=== PATIENT | male | born 1950 | race Caucasian/White ===

== ENCOUNTER 2017-02-04 00:50 | Emergency (ER) | payer MEDICARE, OTHER ==
--- NOTE | 2017-02-04 01:06 | EDM.PDOC ---
ED HPI GENERAL MEDICAL PROBLEM - General Chief Complaint: General Stated Complaint: Intoxication Time Seen by Provider: 02/04/17 00:50 Source of Information: Reports: EMS, EMS Notes Reviewed, RN, RN Notes Reviewed History Limitations: Reports: Intoxication - History of Present Illness INITIAL COMMENTS - FREE TEXT/NARRATIVE: Patient is brought to the ED at [facility] after he was found laying in a alley behind a bar. Patient was found by local police department. The police called EMS for treatment. Patient apparently was intoxicated and had significant problems with standing. Patient recently had left hip surgery. Patient is incoherent and smells of ETOH. He denies any pain. No chest pain. No SOB. Patient is a poor historian due to current ETOH intoxication. Onset: Today Onset Date: 02/04/17 - Related Data Allergies Allergy/AdvReac Type Severity Reaction Status Date / Time No Known Allergies Allergy Verified 02/04/17 01:10 Home Meds: Home Meds Aspirin [Halfprin] 81 mg PO DAILY 08/25/14 [History] Cholecalciferol (Vitamin D3) [Vitamin D] 1,000 unit PO DAILY 08/25/14 [History] Multivitamin [Multi Vitamin Daily] 1 each PO DAILY 08/25/14 [History] atorvaSTATin [Lipitor] 10 mg PO BEDTIME 08/25/14 [History] Albuterol/Ipratropium [Combivent Respimat] 1 puff INH 10/15/14 [History] Moxifloxacin [Vigamox 0.5% Ophth Soln] 1 drop EYELF TID 10/15/14 [History] Nepafenac [[place] 0.1% Ophth Soln] 1 drop EYELF TID 10/15/14 [History] prednisoLONE Acetate [Pred Forte 1% Ophth Susp] 1 drop EYELF TID 10/15/14 [ History] Past Medical History - Past Surgical History Musculoskeletal Surgical History: Reports: Hip Replacement Social & Family History - Family History Family Medical History: Noncontributory - Tobacco Use Smoking Status *Q: Former Smoker Years of Tobacco use: 30 Used Tobacco, but Quit: Yes - Tobacco Core Measures Tobacco Use/Smoking Within Last 30 Days: No Smokeless Tobacco Use in Last 30 Days: No - Alcohol Use Alcohol Use History: Yes Days Per Week of Alcohol Use: 5 Number of Drinks Per Day: 2 Total Drinks Per Week: 10 Alcohol Use in Last Twelve Months: Yes - Recreational Drug Use Recreational Drug Use: No Drug Use in Last 12 Months: No - Living Situation & Occupation Living situation: Reports: Alone Occupation: Retired ED ROS GENERAL - Review of Systems Review Of Systems: Unable To Obtain (ETOH intoxication) - Physical Exam Exam: See Below Exam Limited By: Intoxication General Appearance: Alert, No Apparent Distress Eye Exam: Bilateral Eye: Normal Inspection, PERRL Ears: Normal External Exam, Normal Canal, Normal TMs Nose: Normal Inspection, Normal Mucosa, No Blood Throat/Mouth: Normal Inspection, Normal Oropharynx, No Airway Compromise Head Exam: Atraumatic, Normocephalic Neck: Supple Respiratory/Chest: No Respiratory Distress, Lungs Clear, Normal Breath Sounds Cardiovascular: Normal Peripheral Pulses, Regular Rate, Rhythm GI/Abdominal: Normal Bowel Sounds, Soft, Non-Tender Neuro Exam (Abbreviated): Alert, Confused, Disoriented Back Exam: Normal Inspection Skin Exam: Warm, Dry, Normal Color, No Rash, Wound/Incision (abrasion to left elbow) Course - Vital Signs Last Recorded V/S: Last Vital Signs Temp 36.1 C 02/04/17 00:52 Pulse 76 02/04/17 00:52 Resp 16 02/04/17 00:52 BP 145/85 H 02/04/17 00:52 Pulse Ox 98 02/04/17 00:52 - Orders/Labs/Meds Orders: Active Orders 24 hr Category Date Time Status Hip Min 2V or 3V w Pelvis Lt [CR] Stat Exams 02/04/17 01:35 Taken Lactated Ringers [Ringers, Lactated] 1,000 ml Med 02/04/17 02:00 Active IV ASDIRECTED Sodium Chloride 0.9% [Saline Flush] Med 02/04/17 01:52 Active 10 ml FLUSH ASDIRECTED PRN Peripheral IV Insertion Adult [OM.PC] Routine Oth 02/04/17 01:52 Ordered Medication Orders Lactated Ringer's (Ringers, Lactated) 1,000 mls @ 999 mls/hr IV ASDIRECTED AMENA Last Admin: 02/04/17 01:10 Dose: 999 mls/hr Sodium Chloride (Saline Flush) 10 ml FLUSH ASDIRECTED PRN PRN Reason: Keep Vein Open Labs: Laboratory Tests 05/15/17 05/15/17 Range/Units 01:05 01:05 WBC 6.3 (4.0-10.0) x10^3/uL RBC 3.96 L (4.5-6.0) x10^6/uL Hgb 12.1 L (14.0-18.0) g/dL Hct 35.8 L (40.0-52.0) % MCV 90.4 (78.0-93.0) fL MCH 30.6 (26.0-32.0) pg MCHC 33.8 (32.0-36.0) g/dL RDW Coeff of [place] 13.1 (10.0-15.0) % Plt Count 189 (130-400) x10^3/uL Neut % (Auto) 55.6 (50.0-80.0) % Lymph % (Auto) 34.3 (25.0-50.0) % [place] % (Auto) 7.7 (2.0-11.0) % Eos % (Auto) 2.1 (0.0-4.0) % Baso % (Auto) 0.3 (0.2-1.2) % Sodium 131 L (136-145) mmol/L Potassium 3.8 (3.5-5.1) mmol/L Chloride 96 L (98-107) mmol/L Carbon Dioxide 24 (21-32) mmol/L BUN 5 L (7-18) mg/dL Creatinine 0.7 (0.70-1.30) mg/dL Est Cr Clr Drug Dosing 94.43 mL/min Estimated GFR (MDRD) > 60 Glucose 114 H (74-106) mg/dL Calcium 7.8 L (8.5-10.1) mg/dL Ethyl Alcohol 349 H* (0-3) mg/dL Meds: Medications Generic Name Dose Route Start Last Admin Trade Name Freq PRN Reason Stop Dose Admin Lactated Ringer's 1,000 mls @ 999 mls/hr 02/04/17 02:00 02/04/17 01:10 Ringers, Lactated IV 999 mls/hr ASDIRECTED AMENA Administration Sodium Chloride 10 ml 02/04/17 01:52 Saline Flush FLUSH ASDIRECTED PRN Keep Vein Open - Radiology Interpretation Free Text/Narrative:: 02/04/2017 02:16 Hip/Pelvis 2 or 3 views: Oblique fracture proximal left femoral diaphysis crosses the intramedullary component of the bipolar hip replacement Departure - Departure Time of Disposition: 02:21 Disposition: DC/Tfer to Acute Hospital 02 Clinical Impression: Acute alcohol intoxication Qualifiers: Complication of substance-induced condition: with delirium Qualified Code(s): F10.921 - Alcohol use, unspecified with intoxication delirium Femur fracture, left Qualifiers: Encounter type: initial encounter Femur location: shaft Fracture type: closed Fracture morphology: oblique Fracture alignment: displaced Qualified Code(s): S72.332A - Displaced oblique fracture of shaft of left femur, initial encounter for closed fracture S/P hip replacement Qualifiers: Laterality: left Qualified Code(s): Z96.642 - Presence of left artificial hip joint - Discharge Information Forms: Interfacility Transfer EMTALA ED Communication - ED Communication Date/Time Date: 02/04/17 Time Called: 02:10 - Discussed Case With (1) Discussed Case With (1): Admitting Provider (Dr. Escobedo, Orthopedics; Dr. Maldonado, Hospitalist is admitting provider) - Conversation Summary Admitting Provider Agreed to Patient's Admission: Yes Patient Aware of Amendments fo Care Plan: Yes Summary Comment: Patient will be transferred to [facility] medical floor. Accepting provider is Dr. Escobedo/Dr. Maldonado. Report given to Dr. Escobedo. - Problem List Review Problem List Initiated/Reviewed/Updated: Yes - My Orders Last 24 Hours: My Active Orders 02/04/17 01:35 Hip Min 2V or 3V w Pelvis Lt [CR] Stat 02/04/17 01:52 Sodium Chloride 0.9% [Saline Flush] 10 ml FLUSH ASDIRECTED PRN Peripheral IV Insertion Adult [OM.PC] Routine 02/04/17 02:00 Lactated Ringers [Ringers, Lactated] 1,000 ml IV ASDIRECTED - Assessment/Plan Last 24 Hours: My Active Orders 02/04/17 01:35 Hip Min 2V or 3V w Pelvis Lt [CR] Stat 02/04/17 01:52 Sodium Chloride 0.9% [Saline Flush] 10 ml FLUSH ASDIRECTED PRN Peripheral IV Insertion Adult [OM.PC] Routine 02/04/17 02:00 Lactated Ringers [Ringers, Lactated] 1,000 ml IV ASDIRECTED
[2017-02-04 01:14] VITALS: BP 145/85
[2017-02-04 01:43] LABS: CHLORIDE,CL 96 mmol/L (98-107); SODIUM,NA 131 mmol/L (136-145)
[2017-02-04] MEDS ORDERED: Sodium Chloride 0.9% 10 ML Syringe FLUSH PRN (01:52)
[2017-02-04] MEDS ORDERED: Lactated Ringers 1,000 ML IV SCH (02:00)
== END 2017-02-04 02:47 | disposition short-term general hospital (02) ==
LOC: VM.ED 00:50
DX: S72.332A Displaced oblique fracture of shaft of left femur, initial encounter for closed fracture (principal); F10.921 Alcohol use, unspecified with intoxication delirium; Z96.642 Presence of left artificial hip joint; Z79.82 Long term (current) use of aspirin; Z79.899 Other long term (current) drug therapy; Z87.891 Personal history of nicotine dependence; X58.XXXA Exposure to other specified factors, initial encounter
CPT/HCPCS: 36415; 73502; 80048; 85025; 96360; 99285; G0480; J7120

== ENCOUNTER 2017-02-08 12:44 | Inpatient (IN) | payer MEDICARE, OTHER ==
[2017-02-08] MEDS ORDERED: oxyCODONE 5 MG Tab PO PRN (16:36)
[2017-02-08] MEDS ORDERED: Albuterol/Ipratropium 4 GM Inhalation Spray INH PRN (16:36)
[2017-02-08] MEDS ORDERED: Albuterol/Ipratropium 3.0-0.5 MG/3 ML Neb Soln NEB PRN (17:07)
[2017-02-08] MEDS: Acetaminophen 325 MG Tab PO PRN (19:35)
[2017-02-08] MEDS: atorvaSTATin 10 MG Tab PO SCH (19:38)
[2017-02-08] MEDS: Aspirin 325 MG Tab.EC PO SCH (19:38)
[2017-02-09] MEDS: Acetaminophen 325 MG Tab PO PRN (06:10)
[2017-02-09] MEDS: Omeprazole 20 MG Cap.CR PO SCH (06:10)
[2017-02-09] MEDS: Cholecalciferol (Vitamin D3) 1,000 Unit Tab PO SCH (07:50)
[2017-02-09] MEDS: Multivitamins with Iron/Calcium/Folic Acid/Minerals Tab PO SCH (07:50)
[2017-02-09] MEDS: Aspirin 325 MG Tab.EC PO SCH ×2 (07:50→19:43)
[2017-02-09] MEDS: ALBUTEROL INH PRN (07:51)
[2017-02-09] MEDS: IPRATROPIUM INH PRN (07:51)
[2017-02-09] MEDS: atorvaSTATin 10 MG Tab PO SCH (19:43)
[2017-02-10] MEDS: Omeprazole 20 MG Cap.CR PO SCH (06:27)
[2017-02-10] MEDS: Cholecalciferol (Vitamin D3) 1,000 Unit Tab PO SCH (07:35)
[2017-02-10] MEDS: Acetaminophen 325 MG Tab PO PRN (07:36)
[2017-02-10] MEDS: Multivitamins with Iron/Calcium/Folic Acid/Minerals Tab PO SCH (07:36)
[2017-02-10] MEDS: ALBUTEROL INH PRN (07:36)
[2017-02-10] MEDS: IPRATROPIUM INH PRN (07:36)
[2017-02-10] MEDS: Aspirin 325 MG Tab.EC PO SCH ×2 (07:36→19:49)
[2017-02-10] MEDS: atorvaSTATin 10 MG Tab PO SCH (19:49)
[2017-02-11] MEDS: Omeprazole 20 MG Cap.CR PO SCH (06:08)
[2017-02-11] MEDS: Acetaminophen 325 MG Tab PO PRN (06:11)
[2017-02-11] MEDS: Cholecalciferol (Vitamin D3) 1,000 Unit Tab PO SCH (07:48)
[2017-02-11] MEDS: Multivitamins with Iron/Calcium/Folic Acid/Minerals Tab PO SCH (07:49)
[2017-02-11] MEDS: Aspirin 325 MG Tab.EC PO SCH ×2 (07:49→20:27)
--- NOTE | 2017-02-11 14:50 | PCM.HP ---
H&P History of Present Illness - General Date of Service: 02/09/17 Admit Problem/Dx: Admission Diagnosis/Problem Admission Diagnosis/Problem Hip pain Patient is s/p left hip ORIF completed at [facility] in [place]. Source of Information: Patient, Old Records History Limitations: Reports: No Limitations - Related Data Allergies/Adverse Reactions: Allergies Allergy/AdvReac Type Severity Reaction Status Date / Time No Known Allergies Allergy Verified 02/08/17 10:20 Home Medications: Home Meds Cholecalciferol (Vitamin D3) [Vitamin D] 2,000 unit PO DAILY 08/25/14 [History] Multivitamin [Multi Vitamin Daily] 1 tab PO DAILY 08/25/14 [History] atorvaSTATin [Lipitor] 10 mg PO BEDTIME 08/25/14 [History] Albuterol/Ipratropium [Combivent Respimat] 1 puff INH QID PRN 10/15/14 [History] Aspirin/Calcium Carbonate/Mag [Aspirin Buffered 325 mg Tab] 325 mg PO BID [History] Omeprazole 40 mg PO DAILY 02/08/17 [History] Sennosides/Docusate Sodium [Senna-Docusate Sodium] 1 tab PO DAILY 02/08/17 [ History] oxyCODONE 5 - 10 mg PO Q4H PRN 02/08/17 [History] Past Medical History Cardiovascular History: Reports: CAD, High Cholesterol, Hypertension, CT, PVD, Other (See Below) Other Cardiovascular History: aortoliac stenosis, vascular claudication Respiratory History: Reports: COPD, Other (See Below) Other Respiratory History: acute respiratory failure Musculoskeletal History: Reports: Other (See Below) Other Musculoskeletal History: right elbow fracure Psychiatric History: Reports: Addiction - Past Surgical History HEENT Surgical History: Reports: Cataract Surgery Cardiovascular Surgical History: Reports: AAA repair, Other (See Below) Other Cardiovascular Surgeries/Procedures: cardiac catheterization GI Surgical History: Reports: Hernia Repair/Other Musculoskeletal Surgical History: Reports: Hip Replacement Social & Family History - Family History Family Medical History: Noncontributory - Tobacco Use Smoking Status *Q: Former Smoker Years of Tobacco use: 35 Used Tobacco, but Quit: Yes Month Tobacco Last Used: 2003 - Alcohol Use Days Per Week of Alcohol Use: 2 Number of Drinks Per Day: 4 Total Drinks Per Week: 8 - Recreational Drug Use Recreational Drug Use: No Drug Use in Last 12 Months: No - Living Situation & Occupation Living situation: Reports: Alone Occupation: Retired H&P Review of Systems - Review of Systems: Review Of Systems: See Below General: Denies: Fever, Chills HEENT: Reports: No Symptoms Pulmonary: Denies: Shortness of Breath, Cough Cardiovascular: Denies: Chest Pain, Dyspnea on Exertion, Edema Gastrointestinal: Denies: Abdominal Pain, Constipation, Diarrhea, Nausea, Vomiting Genitourinary: Reports: No Symptoms Musculoskeletal: Reports: Joint Pain Skin: Reports: No Symptoms Psychiatric: Reports: No Symptoms Neurological: Reports: Weakness Hematologic/Lymphatic: Reports: No Symptoms Immunologic: Reports: No Symptoms Exam - Exam Exam: See Below - Vital Signs Vital Signs: Last Vital Signs Temp 36.8 C 02/11/17 05:48 Pulse 78 02/11/17 05:48 Resp 20 02/11/17 05:48 BP 142/70 H 02/11/17 05:48 Pulse Ox 96 02/10/17 16:59 Weight: 66.678 kg - Exam General: Alert, Oriented HEENT: Conjunctiva Clear, EOMI, Mucosa Moist & [place] Neck: Supple. No: Lymphadenopathy Lungs: Clear to Auscultation Cardiovascular: Regular Rate, Regular Rhythm Abdomen: Normal Bowel Sounds, Soft (Male) Exam: Deferred Rectal (Males) Exam: Deferred Extremities: Normal Inspection. No: Edema Skin: Warm, Dry, Other (Incision on left hip is clean) Neurological: Cranial Nerves Intact Neuro Extensive - Mental Status: Alert, Oriented x3 Neuro Extensive - Motor, Sensory, Reflexes: CN II-XII Intact Psychiatric: Alert, Normal Affect *Q Meaningful Use (ADM) - VTE *Q VTE Criteria *Q: - Stroke *Q Stroke Criteria *Q: - AMI *Q AMI Criteria *Q: - Problem List (1) S/P hip replacement SNOMED Code(s): 573932002, 563684509, 933712444 ICD Code: Z96.649 - PRESENCE OF UNSPECIFIED ARTIFICIAL HIP JOINT Status: Acute Current Visit: No (2) Dyslipidemia SNOMED Code(s): 728487151 ICD Code: E78.5 - HYPERLIPIDEMIA, UNSPECIFIED Status: Acute Current Visit : Yes Problem List Initiated/Reviewed/Updated: Yes Orders Last 24hrs: Active Orders 24 hr Category Date Time Status Kait Sutures Removal [RC] Click To Edit Ot 02/19/17 10:00 Active Medication Orders Acetaminophen (Tylenol) 975 mg PO Q6H PRN PRN Reason: Pain Last Admin: 02/11/17 06:11 Dose: 975 mg Admin: 02/10/17 07:36 Dose: 975 mg Admin: 02/09/17 06:10 Dose: 975 mg Admin: 02/08/17 19:35 Dose: 975 mg Aspirin (Ecotrin) 325 mg PO BID [facility] Last Admin: 02/11/17 07:49 Dose: 325 mg Admin: 02/10/17 19:49 Dose: 325 mg Admin: 02/10/17 07:36 Dose: 325 mg Admin: 02/09/17 19:43 Dose: 325 mg Admin: 02/09/17 07:50 Dose: 325 mg Admin: 02/08/17 19:38 Dose: 325 mg Atorvastatin Calcium (Lipitor) 10 mg PO BEDTIME [facility] Last Admin: 02/10/17 19:49 Dose: 10 mg Admin: 02/09/17 19:43 Dose: 10 mg Admin: 02/08/17 19:38 Dose: 10 mg Cholecalciferol (Vitamin D3) 2,000 units PO DAILY [facility] Last Admin: 02/11/17 07:48 Dose: 2,000 units Admin: 02/10/17 07:35 Dose: 2,000 units Admin: 02/09/17 07:50 Dose: 2,000 units Multivitamins/Minerals (Thera M Plus) 1 tab PO DAILY [facility] Last Admin: 02/11/17 07:49 Dose: 1 tab Admin: 02/10/17 07:36 Dose: 1 tab Admin: 02/09/17 07:50 Dose: 1 tab Omeprazole (Omeprazole) 40 mg PO DAILY@0700 [facility] Last Admin: 02/11/17 06:08 Dose: 40 mg Admin: 02/10/17 06:27 Dose: 40 mg Admin: 02/09/17 06:10 Dose: 40 mg Oxycodone HCl (Oxycodone) 5 mg PO Q4H PRN PRN Reason: Pain Albuterol/Ipratropium 4 Gm Inhalation [facility] Own Med 0 each INH QIDRT PRN PRN Reason: Wheezing Last Admin: 02/10/17 07:36 Dose: 1 each Admin: 02/09/17 07:51 Dose: 1 each Senna/Docusate Sodium (Senna Plus) 1 tab PO DAILY AMENA Last Admin: 02/11/17 07:49 Dose: 1 tab Admin: 02/10/17 07:36 Dose: 1 tab Admin: 02/09/17 07:50 Dose: 1 tab Assessment/Plan Comment:: assessment: 1. Status post left hip open reduction internal fixation 2. Dyslipidemia Plan: Patient will be admitted [facility] and enrolled in both physical as well as occupational therapy. His goal is to return home to the [facility]. He states that there is a ramp and elevator in his apartment complex and does not have to do stairs. Medications per orders. Changes will be made in his therapeutic regimen as necessary
[2017-02-11] MEDS: atorvaSTATin 10 MG Tab PO SCH (20:27)
[2017-02-12] MEDS: Omeprazole 20 MG Cap.CR PO SCH (06:17)
[2017-02-12] MEDS: Acetaminophen 325 MG Tab PO PRN (08:48)
[2017-02-12] MEDS: Multivitamins with Iron/Calcium/Folic Acid/Minerals Tab PO SCH (08:48)
[2017-02-12] MEDS: Aspirin 325 MG Tab.EC PO SCH ×2 (08:48→20:17)
[2017-02-12] MEDS: Cholecalciferol (Vitamin D3) 1,000 Unit Tab PO SCH (08:48)
[2017-02-12] MEDS: atorvaSTATin 10 MG Tab PO SCH (20:17)
[2017-02-13] MEDS: Omeprazole 20 MG Cap.CR PO SCH (06:36)
[2017-02-13] MEDS: Aspirin 325 MG Tab.EC PO SCH ×2 (07:55→20:30)
[2017-02-13] MEDS: Multivitamins with Iron/Calcium/Folic Acid/Minerals Tab PO SCH (07:55)
[2017-02-13] MEDS: Cholecalciferol (Vitamin D3) 1,000 Unit Tab PO SCH (07:55)
[2017-02-13] MEDS: Acetaminophen 325 MG Tab PO PRN ×2 (07:55→20:34)
[2017-02-13] MEDS: atorvaSTATin 10 MG Tab PO SCH (20:30)
[2017-02-14] MEDS: Omeprazole 20 MG Cap.CR PO SCH (06:22)
[2017-02-14] MEDS: Aspirin 325 MG Tab.EC PO SCH ×2 (07:40→19:42)
[2017-02-14] MEDS: Acetaminophen 325 MG Tab PO PRN ×2 (07:40→19:42)
[2017-02-14] MEDS: Multivitamins with Iron/Calcium/Folic Acid/Minerals Tab PO SCH (07:40)
[2017-02-14] MEDS: Cholecalciferol (Vitamin D3) 1,000 Unit Tab PO SCH (07:40)
[2017-02-14] MEDS: atorvaSTATin 10 MG Tab PO SCH (19:43)
[2017-02-15] MEDS: Omeprazole 20 MG Cap.CR PO SCH (06:22)
[2017-02-15 06:25] VITALS: BP 126/75
[2017-02-15] MEDS: Aspirin 325 MG Tab.EC PO SCH (07:32)
[2017-02-15] MEDS: Multivitamins with Iron/Calcium/Folic Acid/Minerals Tab PO SCH (07:32)
[2017-02-15] MEDS: Cholecalciferol (Vitamin D3) 1,000 Unit Tab PO SCH (07:32)
[2017-02-15] MEDS: Acetaminophen 325 MG Tab PO PRN (08:00)
--- NOTE | 2017-03-12 11:05 | PCM.DCSUM1 ---
Discharge Summary - Hospital Course Free Text/Narrative:: 66 year old male admitted to swing bed for continued therapy following a left hip fracture. Fracture repaired at [facility]. - Discharge Data Discharge Date: 02/15/17 Discharge Disposition: Home, Self-Care 01 Condition: Good - Discharge Diagnosis/Problem(s) (1) S/P hip replacement SNOMED Code(s): 933329873, [id number], [id number] ICD Code: Z96.649 - PRESENCE OF UNSPECIFIED ARTIFICIAL HIP JOINT Status: Acute (2) Dyslipidemia SNOMED Code(s): 111229135 ICD Code: E78.5 - HYPERLIPIDEMIA, UNSPECIFIED Status: Acute - Patient Summary/Data Consults: Consultations 02/08/17 14:49 OT Evaluation and Treatment [CONS] Routine PT Evaluation and Treatment [CONS] Routine Hospital Course: Patient was admitted to swing bed and enrolled in therapies. His swing bed course was unremarkable. f He participated in therapy and progressed to the point he felt safe to return to home. pain was well controlled throughout his stay. Vitals were normal. - Patient Instructions Diet: Heart Healthy Diet Showering/Bathing: January Show - Discharge Plan Home Medications: Home Meds Cholecalciferol (Vitamin D3) [Vitamin D3] 2,000 unit PO DAILY 08/25/14 [History] Multivitamin [Multi-Vitamin Daily] 1 tab PO DAILY 08/25/14 [History] atorvaSTATin [Lipitor] 10 mg PO BEDTIME 08/25/14 [History] Aspirin/Calcium Carbonate/Mag [Aspirin Buffered 325 mg Tab] 325 mg PO BID [History] Omeprazole 40 mg PO DAILY 02/08/17 [History] Sennosides/Docusate Sodium [Senna-Docusate Sodium] 1 tab PO DAILY 02/08/17 [ History] Acetaminophen [Tylenol] 975 mg PO Q6H PRN #0 tablet 02/15/17 [Rx] - Discharge Summary/Plan Comment DC Time >30 min.: No Discharge Summary/Plan Comment: Patient will be discharged home to the care of himself. He refuses home health/ home physical therapy -indicating he does not intend to be home bound. He will follow up in clinic for staple removal. Discharge medications per reconciliation - General Info Admission Dx/Problem (Free Text: Admission Diagnosis/Problem Admission Diagnosis/Problem Hip pain Patient is s/p left hip ORIF completed at [facility] in [place]. Functional Status: Reports: pain controlled - Review of Systems General: Denies: Fever HEENT: Reports: no symptoms Pulmonary: Denies: shortness of breath, cough Cardiovascular: Denies: Chest Pain Gastrointestinal: Denies: Abdominal pain, Constipation Genitourinary: Denies: dysuria, frequency Musculoskeletal: Denies: joint pain Neurological: Reports: No Symptoms - Patient Data Vitals - Most Recent: Last Vital Signs Temp 37.2 C 02/15/17 06:00 Pulse 93 02/15/17 06:00 Resp 20 02/15/17 06:00 BP 126/75 02/15/17 06:00 Pulse Ox 97 02/15/17 06:00 Weight - Most Recent: 66.678 kg Med Orders - Current: Current Medications Discontinued Medications Acetaminophen (Tylenol) 975 mg PO Q6H PRN PRN Reason: Pain Last Admin: 02/15/17 08:00 Dose: 975 mg Albuterol/Ipratropium (Combivent Respimat) 0 gm INH QID PRN PRN Reason: Wheezing Albuterol/Ipratropium (Duoneb 3.0-0.5 Mg/3 Ml) 3 ml NEB QIDRT PRN PRN Reason: Shortness of Breath Aspirin (Ecotrin) 325 mg PO BID [facility] Last Admin: 02/15/17 07:32 Dose: 325 mg Atorvastatin Calcium (Lipitor) 10 mg PO BEDTIME [facility] Last Admin: 02/14/17 19:43 Dose: 10 mg Cholecalciferol (Vitamin D3) 2,000 units PO DAILY [facility] Last Admin: 02/15/17 07:32 Dose: 2,000 units Multivitamins/Minerals (Thera M Plus) 1 tab PO DAILY [facility] Last Admin: 02/15/17 07:32 Dose: 1 tab Omeprazole (Omeprazole) 40 mg PO DAILY@0700 [facility] Last Admin: 02/15/17 06:22 Dose: 40 mg Oxycodone HCl (Oxycodone) 5 mg PO Q4H PRN PRN Reason: Pain Albuterol/Ipratropium 4 Gm Inhalation [place] Own Med 0 each INH QIDRT PRN PRN Reason: Wheezing Last Admin: 02/10/17 07:36 Dose: 1 each Senna/Docusate Sodium (Senna Plus) 1 tab PO DAILY AM[facility] Last Admin: 02/15/17 07:32 Dose: 1 tab - Exam General: Reports: alert, oriented HEENT: Reports: Pupils equal Neck: Reports: supple Lungs: Reports: Clear to auscultation Cardiovascular: Reports: Regular Rate Abdomen: Reports: bowel sounds present, soft Extremities: Reports: no edema Skin: Reports: warm, dry Wound/Incisions: Reports: healing well, no drainage. Denies: erythema Neurological: Reports: no new focal deficit *Q Meaningful Use (DIS) - VTE *Q VTE Criteria *Q: - Stroke *Q Stroke Criteria *Q: - AMI *Q AMI Criteria *Q:
== END 2017-02-15 09:10 | disposition home or self-care (01) | DRG 561 ==
LOC: VM.MS 13:41
PROVIDERS: ADMIT Family Medicine; ATTEND Family Medicine
DX: Z47.89 Encounter for other orthopedic aftercare (principal); I25.10 Atherosclerotic heart disease of native coronary artery without angina pectoris; I10 Essential (primary) hypertension; E78.00 Pure hypercholesterolemia, unspecified; I25.2 Old myocardial infarction; I73.9 Peripheral vascular disease, unspecified; J44.9 Chronic obstructive pulmonary disease, unspecified; Z87.891 Personal history of nicotine dependence; Z79.82 Long term (current) use of aspirin; Z79.899 Other long term (current) drug therapy; E78.5 Hyperlipidemia, unspecified
CPT/HCPCS: 97110-GO; 97110-GP; 97116-GP; 97161-GP; 97165-GO; 97535-GO; A9270-GY

== ENCOUNTER 2019-12-07 07:13 | Day surgery (SDC) | payer MEDICARE, OTHER ==
[~2019-12-07 07:13] MED LIST: Lactated Ringers 1,000 ML IV SCH
[2019-12-07] MEDS ORDERED: Propofol 200 MG/20 ML SDV ONE ×2 (08:21→09:41)
[2019-12-07] MEDS ORDERED: Glycopyrrolate 0.2 MG/ML 2 ML SDV ONE (09:37)
[2019-12-07 10:30] VITALS: PULSE 60
[2019-12-07 10:34] VITALS: BP 111/62
--- NOTE | 2019-12-07 11:02 | OR ---
PREOPERATIVE DIAGNOSIS: Screening colonoscopy. POSTOPERATIVE DIAGNOSIS: Screening colonoscopy. PROCEDURE PERFORMED: Screening colonoscopy. INDICATION: The patient is a 68-year-old male who presents for his first screening colonoscopy at this time. PROCEDURE IN DETAIL: This was done in the endoscopy suite. Sedation was given per Anesthesia. He was placed in left lateral position. First, a rectal exam was done and was normal. Scope was then introduced into the rectum and slowly advanced to the rectum, sigmoid, descending, transverse, and ascending colon until the cecum was reached. Upon reaching the cecum, the scope was slowly withdrawn looking at all mucosal surfaces on the way out. No mucosal abnormalities, lesions, or polyps were noted. FINAL DIAGNOSIS: Normal colonoscopy. BKD: 12/07/2019 10:17:27 MODL: 12/07/2019 10:53:57 /[id number]
== END 2019-12-07 11:12 | disposition home or self-care (01) ==
LOC: VM.SDS 07:13
PROVIDERS: ATTEND Surgery
DX: Z12.11 Encounter for screening for malignant neoplasm of colon (principal); E78.5 Hyperlipidemia, unspecified; I73.9 Peripheral vascular disease, unspecified; I10 Essential (primary) hypertension; Z79.899 Other long term (current) drug therapy; Z79.82 Long term (current) use of aspirin; Z87.891 Personal history of nicotine dependence
CPT/HCPCS: 00811; J2704; J3490; J7120

== ENCOUNTER 2021-04-16 11:41 | Inpatient (IN) | payer MEDICARE, OTHER ==
[2021-04-16] MEDS: Sodium Chloride 0.9% 1,000 ML IV ONE ×2 (11:50→13:10)
[2021-04-16] MEDS ORDERED: cefTRIAXone 1 GM Vial IVPUSH ONE (11:58)
--- NOTE | 2021-04-16 12:07 | EDM.PDOC ---
ED HPI GENERAL MEDICAL PROBLEM - General Chief Complaint: General Stated Complaint: FELL AT HOME Time Seen by Provider: 04/16/21 11:41 Source of Information: Reports: Patient, EMS History Limitations: Reports: No Limitations ( ) - History of Present Illness INITIAL COMMENTS - FREE TEXT/NARRATIVE: Patient comes in the emergency department with EMS for complaint of laying on the ground for approximately 2 days. Patient states that he had fallen 2 days ago due to weakness and has not been able to get up on his own. He cannot get to the phone or contact anyone. It is noted that he does have some intermittent confusion as a baseline however the patient states that he has been lying there and has not been able to eat. Family did check on him this morning ended up calling around. Patient denies any injury or concern. He states he is too weak. He also states that is lower back/buttocks area is tender to touch. Patient was incontinent on scene due to the long length of time of immobility. Patient denies any headache, dizziness, lightheadedness, blurred vision, chest pain, shortness of breath, fever, abdominal pain, or genitourinary concerns. Patient states that he is hungry. Onset: Sudden - Related Data Allergies Allergy/AdvReac Type Severity Reaction Status Date / Time No Known Allergies Allergy Verified 04/16/21 12:39 Home Meds: Home Meds Multivitamin [Multi-Vitamin Daily] 1 tab PO DAILY 08/25/14 [History] Aspirin [Halfprin] 81 mg PO DAILY 07/15/18 [History] Cholecalciferol (Vitamin D3) [D-2000] 2,000 unit PO DAILY 07/15/18 [History] atorvaSTATin [Lipitor] 10 mg PO DAILY 07/15/18 [History] Past Medical History HEENT History: Reports: Other (See Below) Cardiovascular History: Reports: High Cholesterol, Other (See Below) Other Cardiovascular History: atheroclerosis. vascular claudication. PVD. AAA Respiratory History: Reports: COPD Other Respiratory History: acute respiratory failure Musculoskeletal History: Reports: Other (See Below) Other Musculoskeletal History: elbow fracture Psychiatric History: Reports: Addiction Endocrine/Metabolic History: Reports: None - Past Surgical History Cardiovascular Surgical History: Social & Family History - Family History Family Medical History: No Pertinent Family History - Caffeine Use Caffeine Use: Reports: Other Caffeine Use Comment: too intoxicated to answer - Living Situation & Occupation Living situation: Reports: Alone Occupation: Retired ED ROS GENERAL - Review of Systems Review Of Systems: Comprehensive ROS is negative, except as noted in HPI. Constitutional: Reports: Malaise, Weakness, Fatigue, Decreased Appetite HEENT: Reports: No Symptoms Respiratory: Reports: No Symptoms Cardiovascular: Reports: No Symptoms Endocrine: Reports: No Symptoms GI/Abdominal: Reports: No Symptoms : Reports: No Symptoms Musculoskeletal: Reports: No Symptoms Neurological: Reports: No Symptoms Hematologic/Lymphatic: Reports: No Symptoms Immunologic: Reports: No Symptoms ED EXAM, GENERAL - Physical Exam Exam: See Below Exam Limited By: No Limitations General Appearance: Alert, WD/WN, No Apparent Distress Eye Exam: Bilateral Eye: EOMI, PERRL Nose: Normal Inspection, Normal Mucosa Throat/Mouth: Normal Inspection, Normal Lips, Normal Teeth Head: Atraumatic, Normocephalic Neck: Normal Inspection, Supple, Non-Tender, Full Range of Motion Respiratory/Chest: No Respiratory Distress, Lungs Clear, Normal Breath Sounds, No Accessory Muscle Use, Chest Non-Tender Cardiovascular: Normal Peripheral Pulses, Regular Rate, Rhythm GI/Abdominal: Normal Bowel Sounds, Soft, Non-Tender Extremities: Normal Inspection, Normal Range of Motion, Non-Tender, Normal Capillary Refill Neurological: Alert Psychiatric: Normal Affect, Normal Mood Skin Exam: Increased Warmth (buttock- open sores noted. skin tears on left arm ) Course - Orders/Labs/Meds Orders: Active Orders 24 hr Category Date Time Status Admission Status [Patient Status] [ADT] Routine ADT 04/16/21 13:06 Active CORONAVIRUS COVID-19 RAPID [MOLEC] Stat Lab 04/16/21 13:08 Ordered CULTURE BLOOD [BC] Stat Lab 04/16/21 12:05 Received CULTURE BLOOD [BC] Stat Lab 04/16/21 12:12 Received Blood Culture x2 Reflex Set [OM.PC] Stat Oth 04/16/21 11:57 Ordered Labs: Laboratory Tests 04/16/21 04/16/21 04/16/21 Range/Units 12:05 12:05 12:05 WBC 8.7 (4.0-10.0) x10^3/uL RBC 4.90 (4.5-6.0) x10^6/uL Hgb 14.9 D (14.0-18.0) g/dL Hct 45.8 (40.0-52.0) % MCV 93.5 H D (78.0-93.0) fL MCH 30.4 (26.0-32.0) pg MCHC 32.5 (32.0-36.0) g/dL RDW Coeff of Rivera 14.3 (10.0-15.0) % Plt Count 264 D (130-400) x10^3/uL Neut % (Auto) 77.8 (50.0-80.0) % Lymph % (Auto) 11.4 L (25.0-50.0) % Elbert % (Auto) 10.6 (2.0-11.0) % Eos % (Auto) 0.0 (0.0-4.0) % Baso % (Auto) 0.2 (0.2-1.2) % Sodium 156 H (136-145) mmol/L Potassium 3.8 (3.5-5.1) mmol/L Chloride 118 H (98-107) mmol/L Carbon Dioxide 27 (21-32) mmol/L Anion Gap 14.8 (5-15) mmol/L BUN 48 H D (7-18) mg/dL Creatinine 1.4 H (0.70-1.30) mg/dL Est Cr Clr Drug Dosing TNP Estimated GFR (MDRD) 50 Glucose 113 H (70-99) mg/dL Lactic Acid 3.0 H* (0.4-2.0) mmol/L Calcium 9.0 (8.5-10.1) mg/dL Corrected Calcium 9.6 (8.5-10.1) mg/dL Total Bilirubin 0.5 (0.2-1.0) mg/dL AST 55 H (15-37) U/L ALT 45 (16-63) U/L Alkaline Phosphatase 115 (46-116) U/L Creatine Kinase 519 H* (39-308) U/L Troponin I High Sens 88 H* (<=76) ng/L Total Protein 9.3 H (6.4-8.2) g/dL Albumin 3.3 L (3.4-5.0) g/dL Globulin 6.0 Albumin/Globulin Ratio 0.55 Meds: Medications Discontinued Medications Generic Name Dose Route Start Last Admin Trade Name Freq PRN Reason Stop Dose Admin Ceftriaxone Sodium 1 gm 04/16/21 11:58 04/16/21 12:07 Ceftriaxone 1 Gm Vial IVPUSH 04/16/21 11:59 1 gm ONETIME ONE Administration Sodium Chloride 1,000 mls @ 1,000 mls/hr 04/16/21 11:48 04/16/21 11:50 Normal Saline IV 04/16/21 12:47 1,000 mls/hr ONETIME ONE Administration Departure - Departure Time of Disposition: 13:05 Disposition: Admitted As Inpatient 64 Condition: Good, Fair Clinical Impression: Dehydration Failure to thrive Qualifiers: Failure to thrive age range: in adult Qualified Code(s): R62.7 - Adult failure to thrive Open wound of sacroiliac region without complication Qualifiers: Encounter type: initial encounter Qualified Code(s): S31.000A - Unspecified open wound of lower back and pelvis without penetration into retroperitoneum, initial encounter - Discharge Information *PRESCRIPTION DRUG MONITORING PROGRAM REVIEWED*: Not Applicable *COPY OF PRESCRIPTION DRUG MONITORING REPORT IN PATIENT JUAN F: Not Applicable Referrals: Law Monique PA-C [Primary Care Provider] - Forms: ED Department Discharge - My Orders Last 24 Hours: My Active Orders 04/16/21 11:57 Blood Culture x2 Reflex Set [OM.PC] Stat 04/16/21 12:05 CULTURE BLOOD [BC] Stat 04/16/21 12:12 CULTURE BLOOD [BC] Stat 04/16/21 13:06 Admission Status [Patient Status] [ADT] Routine 04/16/21 13:08 CORONAVIRUS COVID-19 RAPID [MOLEC] Stat - Assessment/Plan Last 24 Hours: My Active Orders 04/16/21 11:57 Blood Culture x2 Reflex Set [OM.PC] Stat 04/16/21 12:05 CULTURE BLOOD [BC] Stat 04/16/21 12:12 CULTURE BLOOD [BC] Stat 04/16/21 13:06 Admission Status [Patient Status] [ADT] Routine 04/16/21 13:08 CORONAVIRUS COVID-19 RAPID [MOLEC] Stat Assessment:: 1. failure to thrive 2. pressure ulcer 3. extended length of time on floor Plan: 1. Sepsis protocol initiated and followed 2. Labs completed in the ER. Results reviewed with the patient 3. Blood cultures completed 4. IV initiated in the emergency department 5. IV fluids provided 6. EKG completed in ER. 7. Rocephin 1gm given 8. Consultation completed with-Dr. Carter who will admit the patient for further medical management. 9. Patient and nursing staff was updated regarding the plan of care 10. Patient and family are agreeable to the above plan of care 11. All questions and concerns were addressed with the patient and family prior to discharge
[2021-04-16 12:44] LABS: CHLORIDE,CL 118 mmol/L (98-107); SODIUM,NA 156 mmol/L (136-145)
[2021-04-16 12:46] LABS: ANION GAP 14.8 mmol/L (5-15)
--- NOTE | 2021-04-16 13:11 | CR ---
[id number] RAD/RAD Chest PA or AP 1V EXAM: SINGLE VIEW CHEST. INDICATION: TRAUMA COMPARISON: CORRELATION IS MADE WITH APRIL 11, 2020 FINDINGS: There is no pneumothorax There is no pleural fluid collection There are no rib fractures There is abnormal fullness of the right paratracheal region The cardiac silhouette is stable IMPRESSION: RIGHT HILAR AND PARATRACHEAL PATHOLOGY CONSIDER CONTRAST CT CHEST NO PNEUMOTHORAX NO RECENT RIB FRACTURE Mendez Lam MD 04/16/21 [id number] Thank you for allowing us to participate in the care of your patient.
[2021-04-16] MEDS: atorvaSTATin 10 MG Tab PO SCH (19:57)
[2021-04-16] MEDS: Dextrose 5%-0.45% NaCl 1,000 ML IV SCH (20:39)
[2021-04-17] MEDS: Dextrose 5%-0.45% NaCl 1,000 ML IV SCH (03:44)
[2021-04-17 07:12] LABS: CHLORIDE,CL 115 mmol/L (98-107); SODIUM,NA 147 mmol/L (136-145)
[2021-04-17 07:23] LABS: ANION GAP 8.2 mmol/L (5-15)
[2021-04-17] MEDS: Cholecalciferol (Vitamin D3) 10 MCG Tab PO SCH (07:41)
[2021-04-17] MEDS: Aspirin 81 MG Tab.EC PO SCH (07:41)
[2021-04-17] MEDS ORDERED: Sodium Chloride 0.45% with KCl 1,000 ML IV SCH (08:15)
--- NOTE | 2021-04-17 10:42 | CR ---
[id number] RAD/RAD Chest PA And Lateral EXAM: RAD Chest PA And Lateral INDICATION: ENLARGED MEDIASTINUM RIGHT. COMPARISON: Yesterday. DISCUSSION/IMPRESSION: As seen yesterday, there is persistent abnormal appearance of the right hilar region extending along the paramediastinal aspect of the right upper lung. No change in appearance since yesterday. Finding is nonspecific in appearance. CT examination of the chest with intravenous contrast is recommended. Sohan Delacruz MD 04/17/21 1040 Thank you for allowing us to participate in the care of your patient.
[2021-04-17] MEDS: Potassium Chloride 10 MEQ Tab.ER PO SCH ×2 (12:26→18:25)
[2021-04-17] MEDS: Enoxaparin 40 MG/0.4 ML Syringe SUBCUT SCH (12:27)
[2021-04-17 17:37] LABS: CHLORIDE,CL 106 mmol/L (98-107); SODIUM,NA 141 mmol/L (136-145)
[2021-04-17 17:40] LABS: ANION GAP 11.4 mmol/L (5-15)
[2021-04-17] MEDS: Azithromycin 250 MG Tab PO SCH (18:25)
[2021-04-17] MEDS: cefTRIAXone 1 GM Vial IVPUSH SCH (18:25)
[2021-04-17] MEDS: Acetaminophen 325 MG Tab PO PRN ×2 (18:25→22:30)
[2021-04-17] MEDS: Thiamine 100 MG Tab PO SCH (19:23)
[2021-04-17] MEDS: Folic Acid 1 MG Tab PO SCH (19:24)
[2021-04-17] MEDS: atorvaSTATin 10 MG Tab PO SCH (19:24)
[2021-04-17] MEDS ORDERED: Albuterol/Ipratropium 3.0-0.5 MG/3 ML Neb Soln NEB PRN (23:02)
[2021-04-18 07:08] LABS: CHLORIDE,CL 109 mmol/L (98-107); SODIUM,NA 144 mmol/L (136-145)
[2021-04-18 07:09] LABS: ANION GAP 10.5 mmol/L (5-15)
[2021-04-18] MEDS: Aspirin 81 MG Tab.EC PO SCH (08:40)
[2021-04-18] MEDS: Cholecalciferol (Vitamin D3) 10 MCG Tab PO SCH (08:40)
[2021-04-18] MEDS: Potassium Chloride 10 MEQ Tab.ER PO SCH ×2 (08:40→18:45)
[2021-04-18] MEDS ORDERED: Iopamidol 612 MG/ML 100 ML Bottle IVPUSH ONE (12:03)
[2021-04-18] MEDS: Enoxaparin 40 MG/0.4 ML Syringe SUBCUT SCH (13:37)
--- NOTE | 2021-04-18 16:02 | CT ---
[id number] CT/CT Chest W IV EXAM: CT Chest W IV CLINICAL DATA: LUNG MASS. COMPARISON: Chest radiograph 04/17/2021. FINDINGS: There is a 6.8 x 5.1 x 5.3 mm right perihilar mass within the upper lobe. Additionally there are multiple hilar and mediastinal lymph nodes many of which demonstrate internal necrosis. For example there is a right hilar lymph node measuring 2.3 cm in short axis (series 6 image 59) there is mass effect on the pulmonary artery and associated airway without high-grade stenosis or occlusion. No endobronchial invasion is identified. Small right pleural effusion. Moderate predominantly paraseptal emphysema. No pneumothorax. Atherosclerotic calcifications of the aorta and its branches. Coronary artery disease. IMPRESSION: 1. 6.8 cm right perihilar mass within the upper lobe. Additionally there are multiple right hilar and mediastinal lymph nodes which are increased in size and demonstrates central necrosis. Findings are consistent with primary lung malignancy with metastatic adenopathy. There is mass effect on the right pulmonary arteries as well as the associated airway without high-grade stenosis or occlusion. Small right pleural effusion. Willy No DO 04/18/21 [id number] Thank you for allowing us to participate in the care of your patient.
[2021-04-18] MEDS: Acetaminophen 325 MG Tab PO PRN ×2 (16:45→22:10)
[2021-04-18] MEDS: Azithromycin 250 MG Tab PO SCH (16:45)
[2021-04-18] MEDS: cefTRIAXone 1 GM Vial IVPUSH SCH (16:45)
--- NOTE | 2021-04-18 18:18 | PCM.SN.2 ---
- Free Text/Narrative Note: Will update his sister about his CT [phone] tano and Narendra in the AM. Dictations are pending. He is requesting a catheter. He is very confused and has dementia.
[2021-04-18] MEDS: atorvaSTATin 10 MG Tab PO SCH (19:50)
[2021-04-18] MEDS: Folic Acid 1 MG Tab PO SCH (19:50)
[2021-04-18] MEDS: Thiamine 100 MG Tab PO SCH (19:50)
[2021-04-19 07:02] LABS: CHLORIDE,CL 106 mmol/L (98-107); SODIUM,NA 140 mmol/L (136-145)
[2021-04-19] MEDS: Aspirin 81 MG Tab.EC PO SCH (09:01)
[2021-04-19] MEDS: Cholecalciferol (Vitamin D3) 10 MCG Tab PO SCH (09:01)
[2021-04-19] MEDS: Potassium Chloride 10 MEQ Tab.ER PO SCH ×3 (09:01→17:52)
[2021-04-19] MEDS: Enoxaparin 40 MG/0.4 ML Syringe SUBCUT SCH (11:49)
--- NOTE | 2021-04-19 11:59 | CT ---
[id number] CT/CT Head WO IV EXAM: CT Head WO IV CLINICAL DATA: CHANGE IN MENTAL STATUS LUNG CANCER COMPARISON: CORRELATION IS MADE WITH THE CAT SCAN OF JULY 15, 2018 FINDINGS: There are two different sites of intracranial hemorrhage with surrounding white matter edema consistent with hemorrhagic metastases There is a right frontal 4.5 cm hematoma on image 35, series 2 There is also a 3.5 cm hematoma in the right temporal lobe just above the petrous ridge on image 26 of the same series. There is no midline shift Report called at time of dictation IMPRESSION: Hemorrhagic right-sided intracranial metastases Mendez Lam MD 04/19/21 [id number] Thank you for allowing us to participate in the care of your patient.
--- NOTE | 2021-04-19 16:13 | PN ---
Progress Note for LICO HERNANDEZ Date: 04/18/2021 Room #: VM.216 SUBJECTIVE: This is hospital day #3 on a 70-year-old admitted with found down at home. He was quite weak and malnourished. He was having low-grade fevers. He was given some IV Rocephin, but yesterday it was not continued in the morning until he spiked a 101.5 fever around 2 p.m. T-max was 102.4. He had his last temp at 10 p.m. low-grade 100.2 and was short of breath. I was contacted by nursing. His sats were over 90%, but I recommended giving him 1 L of oxygen and trying some DuoNebs as he does have a history of smoking. This seemed to help. He says he still a little short of breath this morning and he is coughing some, but he has a good appetite. He is eating 100% of his meals. He is not having any diarrhea. He is denying pain any where. He is answering questions appropriately. He does have some dementia at baseline. Chest x-ray repeated yesterday did show him to have an abnormal appearance in the right hilar region along the paramedial aspect of the right upper lung. He does have a history of smoking. The patient's fluids were also discontinued last evening due to good oral intake in the fact that his hypernatremia had been correcting. OBJECTIVE: Vital Signs: The patient's temperature this a.m. is 98.1, pulse 79, blood pressure 108/64, respiratory rate 26, and O2 96% on 1 L. General: He is in no acute distress. He is eating breakfast. He did cough when swallowing his bites of food. Heart: Regular rate and rhythm, S1 and S2 without murmur. Lungs: Sounds are decreased, especially on the left base. He had no crackles. No wheezes. Abdomen: Nondistended and nontender. Extremities: Warm and dry. No edema. Mental Status: He is alert. He is aware he is at the hospital. LABORATORY DATA: White count 8.3, hemoglobin 11.5 which is stable, and platelets 148. Sodium 144, potassium 3.5, chloride 109, bicarb 28, BUN 15, creatinine 0.8, glucose 91, and calcium 7.7. CRP 7.2. Procalcitonin less than 0.05. UA completely normal. ASSESSMENT: 1. Fall with mild rhabdomyolysis. His CK level normalized. 2. Acute renal failure, multifactorial due to dehydration in the fall. His creatinine has normalized. His GFR is greater than 60. 3. Fevers, possible pneumonia. Procalcitonin negative. We will still continue antibiotics as he likely has underlying chronic obstructive pulmonary disease, but we will do a CT today to evaluate for lung cancer. 4. Hypokalemia, replaced orally. 5. Anemia. Hemoglobin is stable. No signs of bleeding, probably chronic due to malnutrition. 6. Severe malnutrition. We are encouraging a diet. 7. History of coronary disease with non ST-elevation myocardial infarction. The patient never had any chest pain. His troponin had been trending down. 8. Hypernatremia, corrected with IV fluids, half-normal saline. He is 144 today. 9. History of alcohol abuse. 10.Underlying dementia. We will get a cognitive evaluation through therapies. He is on vitamins. PLAN: We will continue acute cares. We will continue IV antibiotics. We will get a CT of his chest. We will continue Lovenox for DVT prophylaxis. We will continue him working with therapies. Clinically, he is improving. MKA: 04/18/2021 09:07:40 MODL: 04/18/2021 09:30:24 /[id number]
--- NOTE | 2021-04-19 16:13 | PN ---
Progress Note for LICO HERNANDEZ Date: 04/17/2021 Room #: VM.216 SUBJECTIVE: This is hospital day #2 on a 70-year-old admitted from the emergency room yesterday after he was found down at home for about 2 days. His CK was mildly elevated. He was found to be severely dehydrated. He had renal insufficiency. He is likely very malnourished. He had a mild bump in troponin, but has not had any chest pain or trouble breathing. He denies that he has had any coughing or fever. He used to smoke and drink too much alcohol, but he has quit. He is known to our hospital from a previous admit several years ago for a hip fracture, and about a year ago, he did establish care with one of the partners in my clinic and had hyponatremia, but during this admit, he has significant hypernatremia. He had altered mental status at the time of the low sodium. Now his sister collaborates also that he does not drink water. He had been drinking a lot of juice. He only eats like fish and vegetables, maybe some toast. He has been very irritable, accusing her of stealing things. He recently had a visit in the clinic and was started on Wellbutrin, but his sister informs me that likely more medications are missing than what he was supposed to use from starting that about 1 week ago. He had gotten some IV Rocephin. He had a temperature of 100.8, but no definite infection was found, but there was some questionable mass or infiltrate on his chest x-ray. The patient also is felt to have dementia, and at one point, he was started on Aricept, since it is listed that he is allergic to it, but no documented history of cognitive assessments was easily found; potentially, it was done when he used to be at [facility]. He was getting filed for a vulnerable adult according to his clinic provider through the [facility]. OBJECTIVE: Vital Signs: Today on exam, again, the patient's T-max was 100.8, last temperature 100 at 2 p.m. yesterday; he is 98.8 this morning. Pulse 83, blood pressure 116/63, respiratory rate 20, and O2 of 93 on room air. General: He is in no acute distress. Heart: Regular rate and rhythm. S1, S2 without murmur. Lungs: Sounds are clear to auscultation bilaterally without crackles or wheezes. Abdomen: Nondistended, nontender. Extremities: Warm and dry. No edema. He is reported to have a decubitus ulcer by nursing, but it was not examined by me today, but no drainage or concern for infection there. Mental Status: He is aware he is at the hospital. He is aware of his name, his sister's name. LABORATORY DATA: Lab work repeated today did show white count normal at 8.2, hemoglobin down to 11.3, platelets 156. Sodium 147, potassium 3.2, chloride 115, bicarb 27, BUN 24, creatinine 0.9, glucose 119, lactic down to 2.2, calcium 7.7, magnesium 1.8, corrected calcium 9.2, bilirubin 0.4, AST down to 46, ALT 33, alkaline phosphatase 78. CK down from 519 to 258, troponin down from 88 to 79. Albumin is 2.1. COVID negative on admission. EKG did not show any new changes from admission. He does have some T-wave inversion and slight ST depression or flattening in the inferior leads. ASSESSMENT: 1. Severe malnutrition, fall, with mild rhabdomyolysis - resolved, acute renal failure - improved with volume repletion, known history of coronary artery disease with mild non ST-elevation myocardial infarction, but no ongoing symptoms. The patient is on aspirin. We will hold off on statins due to his elevated CK. 2. Lung mass versus pneumonia. We will continue the IV Rocephin. We will add oral Zithromax. We will further discuss with the patient possibly doing a chest CT. This was briefly mentioned to his sister. 3. Vulnerable adult. Privacy Director is involved. We will get therapies involved. Very likely he will need to stay on swing bed and possibly go to long-term care or at least a retirement facility. 4. Decubitus ulcer. Wound cares are planned. 5. Hypokalemia. We will replace orally. We will continue IV fluids with half- normal saline with 20 of KCl. 6. Hypernatremia due to severe dehydration. This is correcting. We will repeat a sodium this afternoon. 7. Anemia due to hemodilution. The patient has no acute signs of bleeding. He actually had mild anemia last year. We will follow hemoglobins and recheck tomorrow. He actually had a positive Hemoccult in October. 8. Likely underlying dementia. We will get OT to do a cognitive screen. 9. Chronic obstructive pulmonary disease with history of smoking. PLAN: The patient will continue on acute cares. We will recheck electrolytes and lactate this afternoon. We are repeating his chest x-ray for better views this morning. We will get therapies involved, Privacy Director involved. We will continue IV fluids. We will correct electrolytes for DVT prophylaxis. I will have him on Lovenox. I have started him on thiamine and folate acid supplements as well. It was reported he was taking a multivitamin at home. I am not going to order him any Wellbutrin. If he does have a mood disorder, I would consider something like Remeron to try to increase his appetite. I think nutrition would definitely help him to feel better. Blood cultures were also already done on admission. We will order a sputum culture. The patient stated he is a code level 1. Sister states she is not sure if he would continue that because he might change his mind; however, he is his own decision maker. He may not have the capacity to do so, but at this point, we will continue code 1 status and we will just see how he does. Given his overall prognosis and health problems, he may eventually become a code 3, but again currently appropriate to leave him code 1 while we are medically treating him. LUKEA: 04/17/2021 17:08:47 MODL: 04/17/2021 18:12:00 /[id number]
--- NOTE | 2021-04-19 16:13 | HP ---
CHIEF COMPLAINT: Fell. HISTORY OF PRESENT ILLNESS: Mr. Giordano is a 70-year-old man, who lives by himself at the [facility]. He describes walking to the chair and then getting up to go to another place in his apartment and then losing his balance and falling. He denies hitting his head. He was too weak to get up and lay on the floor for 2 days. I believe his sister came to visit him today and found him. He was brought to the ER by ambulance. The patient says he has been weak for about 10 days. He has been eating and drinking he says and he does have air conditioning in the apartment. His sister says, however, that he is very particular about what he eats and drinks, will not drink any water from the tap or bottled water. He insists on well water. He will only eat fish and vegetables and will not drink milk. She has been concerned about his well-being and his ability to care for himself for a while. The patient denies any loss of consciousness. He denies chest pain, shortness of breath, or dizziness. He just lost his balance and got weak. PAST MEDICAL HISTORY: The patient had an MS over 15 years ago. He also has had an aortic aneurysm repair and a hernia repair. HABITS: The patient does not drink alcohol any more; he quit 2 years ago. Does not smoke cigarettes. ALLERGIES TO MEDICATIONS: None known. FAMILY HISTORY: Noncontributory. SOCIAL HISTORY: The patient is . He is a disabled building construction estimator. He lives by himself at the [facility]. He has 2 children in town, but they are estranged. He has a sister in [place] and a sister in [place] who look in on him. PRESENT MEDICATIONS: It appears from previous notes that he is on baby aspirin once a day, cholecalciferol, atorvastatin, and may be multivitamin pill. His sister notes that he was started on some calcium and also a memory medication earlier this week. I am unable to access his [place] notes. REVIEW OF SYSTEMS: General: The patient says his appetite has been okay. He has just been weak for the last 10 days. He says his appetite is okay and he does not know if he has lost weight, but his sister says his weight goes up and down. The patient says that he usually weighs about 130 pounds. Respiratory: Denies any hemoptysis. He has been coughing some white phlegm periodically for years. CVS: No chest pain, chest pressure, irregular heart beat. GI: No nausea, vomiting, diarrhea, constipation, change in bowel habits. : Denies any dysuria, pyuria, hematuria. Musculoskeletal: Denies any pain in his joints, it is just that he is weak. LIDAR ANALYST: Denies any problems with syncope or dizziness. His sister says that he has been having problems with his memory. PHYSICAL EXAMINATION: General: Reveals a cachectic male in no acute distress. He is lying in bed comfortably and has eaten his clear liquid tray. Vital Signs: His weight is 115 pounds. Temperature was 100, pulse 86, blood pressure 110/54, respiratory rate 19, O2 saturation 94%. Skin: He has some mottling over his legs, red and white. He has a silver dollar sized irregular decubitus on his sacrum. This is through the bone and into the muscle. There is no subcutaneous fat. He has a midline scar in his abdomen. Lymph: None palpable in the neck, groin, or axilla. Lungs: Clear. Cor: S1, S2 normal without rubs, murmurs, or gallops. Abdomen: Soft and nontender. Extremities: No clubbing, cyanosis, or edema. Neuro: No facial asymmetry. He is moving arms equally and well. He moves his legs, but they are very weak and he is really unable to raise them for any length of time. HEENT: EOMs are full. Throat normal. No enlarged thyroid. No masses. LABORATORY DATA: EKG shows normal sinus rhythm. Heart rate of 106. [place] +85. Q-waves in 2, 3, F. Inferior wall MS of unknown age and some ST segging in 2, 3, F. V5 and V6, possible inferior wall ischemia of unknown. No previous EKG is present. Hemoglobin is 14.9, hematocrit 45.8, white count is 8700 with 77 polys, 11 lymphs, 10 monos, platelets 274,000. Sodium 156, chloride 118, potassium 3.8, CO2 is 27, BUN 48, creatinine 1.4. Glucose 113, calcium 9, lactic acid 3, bilirubin 0.5, SGOT 55, SGPT 45, alkaline phosphatase 115, CK is 519 with up to 308 being normal. Total protein 9.3, albumin 3.3, globulin 6.0. Troponin was 88 with normal being 76. SARS test is negative. Chest x-ray is an AP film that might be rotated, but there is some hilar and mediastinal prominence in the right side. UA is pending. IMPRESSION: 1. Dehydration. The patient is hypernatremic and shrt on free water. The patient has already received 2 L of normal saline in the emergency room. He will be switched to D5 1/2 normal saline. The patient will be allowed to eat as he wishes and I have given directions that he is to be given whatever food he wants. 2. Decubitus. We will start wet-to-dry compresses and DuoDerm. He will be placed on a egg crate mattress and turned every hour. He is kept off his back. 3. Elevated troponin and creatine phosphokinase. This may be related to his prolonged lying on the floor; however, he has a history of coronary disease and he will be on monitor and we will recheck serial enzymes. 4. History of abdominal aortic aneurysm. 5. Weight loss. The patient says he usually weighs 130, but he is 115 by our scale here. I am concerned about his mediastinum. When the patient is able to, he should have a proper PA and lateral film and if needed a CT scan. 6. History of questionable memory problems. The patient's last note from the clinic needs to be accessed and if need be, the patient is to be started on medication that [facility] prescribed. 7. Placement. The patient is a vulnerable adult and he is going to need support to be able to stay safe. Social work consult has been placed. The patient has declared that he wishes to be code level 1 and this has been entered on the chart. The patient's primary care provider is Law Monique. If he does not admit to the hospital. He will be covered in the morning by Dr. Maia Dumas, who is radiation oncology therapist. ADDENDUM: Elevated lactic acid level. Unclear the etiology of this. He does not appear to be affected, but he does have a low grade temperature. I have ordered a UA. He has received one dose of Rocephin, but I have not continued the antibiotic pending a source. MZL: 04/16/2021 14:57:13 MODL: 04/16/2021 19:56:17 /[id number]
[2021-04-19] MEDS: cefTRIAXone 1 GM Vial IVPUSH SCH (16:26)
[2021-04-19] MEDS: Azithromycin 250 MG Tab PO SCH (16:27)
[2021-04-19] MEDS ORDERED: Dexamethasone 4 MG Tab PO ONE (17:15)
--- NOTE | 2021-04-19 17:32 | PCM.SN.2 ---
- Free Text/Narrative Note: Discussed Code status with Narendra given lung CT findings this AM and he agreed that he would not want CPR and his family said that always in the past he would not have wanted CPR so code status changed to DNR.
--- NOTE | 2021-04-19 18:14 | PN ---
Progress Note for LICO HERNANDEZ Date: 04/19/2021 Room #: VM.216 SUBJECTIVE: This is hospital day #4 on a 70-year-old admitted with a fall at home, mild rhabdomyolysis, but with a cough, shortness of breath, being treated for pneumonia. His CT did show a 6.8 cm lung mass. He had had worsening health over the past year. He had not reported any headaches, but had more like dementia and personality changes, so he underwent a CT today, which did unfortunately show some large hemorrhagic metastatic masses. The patient has not had any seizures that we know of. He is not complaining of a headache. He feels like his breathing and cough are better. 4.5 cm on the right frontal hematoma and 3.5 cm on the right temporal. CT of the chest discussed with the patient, but I did not see him after the CT of the head returned. I did talk to his sister, Vicky, who has been helping as his assist with decision-making for the patient, although patient did undergo a cognitive eval today which actually came back pretty good. He got 24/30 on his mini-mental showing that mild dementia was likely and 3.1 out of 5.8 on his ACL. He has had some fevers throughout his stay, with his last temperature last evening at 10 p.m. at 101.9. OBJECTIVE: Vital Signs: This morning, his temp is 98.9, pulse 68, blood pressure 112/56, respiratory rate 22, and O2 of 94% on 2 L. General: He is in no acute distress. Heart: Regular rate and rhythm. Lungs: Sounds are decreased throughout, but no crackles, no wheezes. Abdomen: Nondistended, nontender. Extremities: Warm and dry, no edema. Mental Status: He is alert, he is aware he is in the hospital in [place]. LABORATORY DATA: Lab work shows his white count up to 10.6, hemoglobin 11.5, platelets 154. Sodium 140, potassium 3.2, chloride 106, bicarb 31, BUN 10, creatinine 0.9, calcium 7.9, magnesium 2.7, albumin 2.1. Procalcitonin yesterday was less than 0.05. UA completely normal. ASSESSMENT: 1. 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 The patient was told about the lung cancer and says he would like to try to fight it. Instructed him that he needs to get stronger and treat his current infection. 2. Community-acquired pneumonia. He is on day #4 of antibiotics. We will continue with the same, Rocephin and Zithromax. 3. Cognitive impairment, likely at least mild dementia versus related to his tumor metastasis. We are going to start him on some Keppra for seizure prophylaxis along with dexamethasone 4 mg twice daily. His cancer could also explain his ongoing fevers. 4. Acute renal failure due to dehydration, resolved. 5. Fall and mild rhabdomyolysis. He is working with PT. His CK had normalized. 6. Severe malnutrition. He is eating well, 100% of his meals. 7. History of coronary artery disease. He is not having any chest pain. He had a [id number] myocardial infarction on this admission, but mild bump in troponin. He is on medical management. 8. Hypernatremia, resolved. 9. History of alcohol abuse. PLAN: The patient will continue acute cares. We will continue the IV Rocephin and oral Zithromax. We will start oral Keppra and dexamethasone. We will stop the Lovenox for DVT prophylaxis given the hematomas in his brain and repeat all of his lab work tomorrow. Anticipate that if things are stable, the patient can be transferred over to swing bed for further therapies as long as he is willing to participate, but ultimately his sister is coming too in the morning and we will discuss the potential for eventual custodial discharge given this new findings on head CT with hospice. LUKEA: 04/19/2021 17:13:17 MODL: 04/19/2021 18:07:29 /[id number] [id number]
[2021-04-19] MEDS: levETIRAcetam 500 MG Tab PO SCH (19:57)
[2021-04-19] MEDS: atorvaSTATin 10 MG Tab PO SCH (19:57)
[2021-04-19] MEDS: Folic Acid 1 MG Tab PO SCH (19:57)
[2021-04-19] MEDS: Thiamine 100 MG Tab PO SCH (19:57)
[2021-04-20 07:13] LABS: CHLORIDE,CL 107 mmol/L (98-107); SODIUM,NA 141 mmol/L (136-145)
[2021-04-20 07:14] LABS: ANION GAP 8.7 mmol/L (5-15)
[2021-04-20] MEDS ORDERED: Dexamethasone 4 MG Tab PO SCH (08:00)
[2021-04-20] MEDS ORDERED: Ondansetron 4 MG Tab.DIS PO PRN (08:31)
[2021-04-20] MEDS: Cholecalciferol (Vitamin D3) 10 MCG Tab PO SCH (08:47)
[2021-04-20] MEDS: Aspirin 81 MG Tab.EC PO SCH (08:47)
[2021-04-20] MEDS: levETIRAcetam 500 MG Tab PO SCH (08:47)
[2021-04-20] MEDS: Potassium Chloride 10 MEQ Tab.ER PO SCH ×2 (08:47→12:21)
[2021-04-20 14:42] VITALS: BP 143/80; PULSE 90
--- NOTE | 2021-04-20 19:38 | DISCH ---
PRIMARY DISCHARGE DIAGNOSES: 1. A fall at home with mild rhabdomyolysis, resolved. 2. Acute renal failure, resolved with rehydration. 3. Community-acquired pneumonia with fevers, treated with IV antibiotics, improving. 4. Lung lesions, likely lung cancer with lesions in the brain, likely metastatic lung cancer. The patient prophylactically started on Keppra and dexamethasone, but no confirmed seizure activity. 5. Cognitive impairment, mild 24/30 on his mini-mental. The brain tumors, 2 of them are likely contributing. 6. Severe malnutrition. He has been eating 100% of his meals. 7. History of coronary artery disease with mild troponin elevation or non-ST elevation myocardial infarction on admission. This has resolved. He has never had chest pain. 8. Hypernatremia due to severe dehydration, resolved. 9. History of alcohol abuse remotely. 10.History of smoking remotely. 11.Osteoporosis with previous hip fracture. REASON FOR ADMISSION: On the date of admission, this 70-year-old male had been doing poorly and losing weight and having memory and personality changes really for the last year per his sister, had a fall at home, was found about 2 days later, and brought into the emergency room. His sodium level was actually quite elevated at like 156 but he had a history of hyponatremia before. His creatinine was 1.4. He was given half-normal saline and gradually his sodium normalized and his creatinine is normal at 0.8 on discharge. His white count though was initially normal and did come up to 11.7 today. However, he is no longer having any fevers. His last temperature was low-grade on 04/19/2021 at 99.9 at 11 a.m. and 101.9 on 04/18/2021 at 10 p.m. He still continues to have some cough. He continues to have some shortness of breath, but he had been getting nebulizers. He has been on oxygen 2 L to help maintain his O2 sats. The patient had otherwise received IV Rocephin for 5 days and he will be on Zithromax for another 2 days. He has received only Tylenol for pain. No pain pills. He has had his potassium replaced orally. He is on vitamins. Procalcitonin was actually less than 0.05. CRP was 7.2. Albumin was down to 2.1, so that is where severe malnutrition comes on. His UA did not show infection and his COVID test was negative. DISCHARGE PLANS AND INSTRUCTIONS: The patient is being discharged over to swing bed to participate further with therapies. He requested to have a biopsy done to see what kind of cancer he has. He would like to fight it. Sister explained that in the past he would not have wanted aggressive interventions, but at this point, I did state that we would try to make arrangements for and see if he is strong enough to go down to [place] for those tests as an outpatient. Otherwise, the patient is a code level 3. PHYSICAL EXAMINATION: Vital Signs: His discharging vitals are a weight of 52.1 kg, temp 98.2, pulse 90, blood pressure 143/80, respiratory rate 21, O2 of 91 on 2 L. General: He is in no acute distress. Heart: Regular rate and rhythm. S1, S2 without murmur. Lungs: Sounds are clear to auscultation bilaterally with decreased breath sounds in both bases. No crackles. No wheezes. Abdomen: Positive bowel sounds. Soft, nondistended, nontender. Extremities: Warm and dry. No edema. He has scratches over his skin. Left arm examined. There is no redness, discharge, or swelling. Mental Status: He is alert. He is orientated x3. Greater than 30 minutes spent on this discharge process. MKA: 04/20/2021 16:57:29 MODL: 04/20/2021 19:32:23 /[id number]
== END 2021-04-20 15:55 | disposition home or self-care (01) | DRG 871 ==
LOC: VM.ED 11:41 → VM.MS 13:06 → INTOOBSV 13:58 → VM.MS 13:58 → UNDOADMIN 13:58 → OBSVTOIN 13:58 → UNDODISIN 04-20 15:55
PROVIDERS: ADMIT Internal Medicine; ATTEND Internal Medicine
DX: R53.1 Weakness (principal); R62.7 Adult failure to thrive; A41.9 Sepsis, unspecified organism; S31.000A Unspecified open wound of lower back and pelvis without penetration into retroperitoneum, initial encounter; J18.9 Pneumonia, unspecified organism; E43 Unspecified severe protein-calorie malnutrition; N17.9 Acute kidney failure, unspecified; M62.82 Rhabdomyolysis; C34.90 Malignant neoplasm of unspecified part of unspecified bronchus or lung; C79.31 Secondary malignant neoplasm of brain; E87.0 Hyperosmolality and hypernatremia; Z68.1 Body mass index [BMI] 19.9 or less, adult; Z20.822 Contact with and (suspected) exposure to COVID-19; Z66 Do not resuscitate; E86.0 Dehydration; M81.0 Age-related osteoporosis without current pathological fracture; F03.90 Unspecified dementia, unspecified severity, without behavioral disturbance, psychotic disturbance, mood disturbance, and anxiety; L89.159 Pressure ulcer of sacral region, unspecified stage; E78.00 Pure hypercholesterolemia, unspecified; I73.9 Peripheral vascular disease, unspecified; E87.6 Hypokalemia; J44.9 Chronic obstructive pulmonary disease, unspecified; Z87.891 Personal history of nicotine dependence; Z79.82 Long term (current) use of aspirin; Z79.899 Other long term (current) drug therapy
CPT/HCPCS: 36415; 51702; 51798; 70450; 71045; 71046; 71260; 80048; 80053; 80069; 81003; 82550; 83605; 83735; 84145; 84484; 85025; 86140; 87040; 87070; 87205; 92610-GN; 93005; 94640; 96374; 97110-GP; 97116-GP; 97129-GO; 97130-GO; 97162-GP; 97165-GO; 97530-GP; 99284; 99285-25; A9270-GY; J0696; J1650; J3480; J7030; J7042; J7620-GY; J8540; Q9967; U0002

== ENCOUNTER 2021-04-20 12:22 | Inpatient (IN) | payer MEDICARE, OTHER ==
[2021-04-20] MEDS ORDERED: Albuterol/Ipratropium 3.0-0.5 MG/3 ML Neb Soln NEB PRN (12:49)
[2021-04-20] MEDS ORDERED: Acetaminophen 325 MG Tab PO PRN (12:49)
[2021-04-20] MEDS: Azithromycin 250 MG Tab PO SCH (18:10)
[2021-04-20] MEDS: Ondansetron 4 MG Tab.DIS PO PRN (18:10)
[2021-04-20] MEDS: Potassium Chloride 10 MEQ Tab.ER PO SCH ×2 (18:11→22:05)
[2021-04-20] MEDS: Dexamethasone 4 MG Tab PO SCH (18:12)
[2021-04-20] MEDS: levETIRAcetam 500 MG Tab PO SCH (20:29)
[2021-04-20] MEDS: atorvaSTATin 10 MG Tab PO SCH (20:29)
[2021-04-20] MEDS: Folic Acid 1 MG Tab PO SCH (20:29)
[2021-04-20] MEDS: Thiamine 100 MG Tab PO SCH (20:30)
[2021-04-21] MEDS: Cholecalciferol (Vitamin D3) 10 MCG Tab PO SCH (07:50)
[2021-04-21] MEDS: levETIRAcetam 500 MG Tab PO SCH ×2 (07:50→19:46)
[2021-04-21] MEDS: Potassium Chloride 10 MEQ Tab.ER PO SCH ×2 (07:50→11:50)
[2021-04-21] MEDS: Aspirin 81 MG Tab.EC PO SCH (07:50)
[2021-04-21] MEDS: Dexamethasone 4 MG Tab PO SCH ×2 (07:50→17:42)
[2021-04-21] MEDS: Ondansetron 4 MG Tab.DIS PO PRN (11:51)
--- NOTE | 2021-04-21 13:29 | PN ---
Progress Note for LICO HERNANDEZ Date: 04/21/2021 Room #: VM.216 SUBJECTIVE: This is a 70-year-old on swing bed, discharged yesterday after a fall at home, acute renal failure with rhabdomyolysis, found to have pneumonia, completing antibiotics but also having a lung mass and brain mets. He denies any headache. He has not had any fever or chills. He had been eating a 100% of his meals, but then yesterday he was quite sick. He was throwing up. He did not have any stomach pain. He was newly started on dexamethasone and Keppra for seizure prophylaxis. He is feeling better today. He has already eaten breakfast today. His urine had been darker, but it is clear again. He is drinking fluids. He is not on any blood pressure pills. He is mainly on vitamins and potassium supplements. He is still having some cough. He is still a little short of breath. However, he has not used the nebulizer. He has had previous abdominal surgery with a AAA repair in the past. He has the scar for that. He did not report any other abdominal surgeries. OBJECTIVE: Vital Signs: He has a temperature of 97.7, pulse 73, blood pressure 88/49, respiratory rate 20, O2 of 93% on 2.5 L. Weight is 60 kg. General: He is in no acute distress. Heart: Regular rate and rhythm. S1, S2 without murmur. Lungs: Lung sounds are decreased, but there are no crackles. No wheezes. Abdomen: Soft. Positive bowel sounds. Nontender. Extremities: Warm and dry. No edema. Mental Status: He is alert and orientated x3. ASSESSMENT AND PLAN: 1. Nausea and vomiting. Seems better today. We will see how things go. We will get an abdominal x-ray if needed. It is possibly due to the new medications, dexamethasone and Keppra. 2. Fall at home with rhabdomyolysis, improved. He is working with PT. 3. Acute renal failure, resolved. 4. Community-acquired pneumonia. He has been on Rocephin, he completed that. He has one more day of Zithromax today. 5. History of coronary disease. He is not having any chest pain. 6. Peripheral vascular disease and history of smoking. He is no longer smoking. 7. Nausea and vomiting. We will check lab work tomorrow. 8. Severe malnutrition. We will encourage a diet. 9. Hypernatremia, resolved. 10.History of alcohol abuse and smoking remotely. 11.Osteoporosis with hip fracture in the past. 12.Lung lesions, likely cancer with brain metastasis. Referral has been placed for possible pulmonary biopsy with bronch versus IR. Plan: The patient will continue swing bed cares. We will continue his work with therapies. We will get lab work tomorrow. We will cut back on his potassium to just twice daily. He did get a Lees catheter at his request and we will continue that as well for his comfort and monitoring of I's and O's. For DVT prophylaxis, he has been taken off the Lovenox due to the brain mets. We will see if he would like to wear some SCDs. I will also place a dietitian consult for increased calorie and protein intake. MKA: 04/21/2021 12:57:53 MODL: 04/21/2021 13:20:38 /[id number]
[2021-04-21] MEDS: Azithromycin 250 MG Tab PO SCH (16:28)
[2021-04-21] MEDS: Thiamine 100 MG Tab PO SCH (19:46)
[2021-04-21] MEDS: atorvaSTATin 10 MG Tab PO SCH (19:47)
[2021-04-21] MEDS: Folic Acid 1 MG Tab PO SCH (19:47)
[2021-04-22] MEDS: Cholecalciferol (Vitamin D3) 10 MCG Tab PO SCH (08:20)
[2021-04-22] MEDS: Potassium Chloride 10 MEQ Tab.ER PO SCH ×2 (08:20→18:10)
[2021-04-22] MEDS: Aspirin 81 MG Tab.EC PO SCH (08:21)
[2021-04-22] MEDS: Dexamethasone 4 MG Tab PO SCH ×2 (08:21→18:10)
[2021-04-22] MEDS: levETIRAcetam 500 MG Tab PO SCH ×2 (08:21→20:05)
[2021-04-22 08:29] LABS: CHLORIDE,CL 101 mmol/L (98-107); SODIUM,NA 135 mmol/L (136-145)
[2021-04-22 08:30] LABS: ANION GAP 9.1 mmol/L (5-15)
[2021-04-22] MEDS: atorvaSTATin 10 MG Tab PO SCH (20:05)
[2021-04-22] MEDS: Thiamine 100 MG Tab PO SCH (20:05)
[2021-04-22] MEDS: Folic Acid 1 MG Tab PO SCH (20:05)
[2021-04-23] MEDS: Ondansetron 4 MG Tab.DIS PO PRN (08:52)
[2021-04-23] MEDS: Cholecalciferol (Vitamin D3) 10 MCG Tab PO SCH (08:53)
[2021-04-23] MEDS: Dexamethasone 4 MG Tab PO SCH ×2 (08:53→19:09)
[2021-04-23] MEDS: Potassium Chloride 10 MEQ Tab.ER PO SCH ×2 (08:53→19:09)
[2021-04-23] MEDS: Aspirin 81 MG Tab.EC PO SCH (08:53)
[2021-04-23] MEDS: levETIRAcetam 500 MG Tab PO SCH ×2 (08:54→20:22)
[2021-04-23] MEDS: Thiamine 100 MG Tab PO SCH (20:22)
[2021-04-23] MEDS: atorvaSTATin 10 MG Tab PO SCH (20:22)
[2021-04-23] MEDS: Folic Acid 1 MG Tab PO SCH (20:23)
[2021-04-24 07:31] LABS: CHLORIDE,CL 100 mmol/L (98-107); SODIUM,NA 134 mmol/L (136-145)
[2021-04-24 07:32] LABS: ANION GAP 7.2 mmol/L (5-15)
[2021-04-24] MEDS: Potassium Chloride 10 MEQ Tab.ER PO SCH (07:44)
[2021-04-24] MEDS: Dexamethasone 4 MG Tab PO SCH ×2 (07:44→17:51)
[2021-04-24] MEDS: Cholecalciferol (Vitamin D3) 10 MCG Tab PO SCH (07:44)
[2021-04-24] MEDS: Aspirin 81 MG Tab.EC PO SCH (07:44)
[2021-04-24] MEDS: levETIRAcetam 500 MG Tab PO SCH ×2 (07:44→19:49)
--- NOTE | 2021-04-24 18:01 | PN ---
Progress Note for LICO HERNANDEZ Date: 04/24/2021 Room #: VM.216 SUBJECTIVE: This is a 70-year-old on swing bed recovering after a fall at home and pneumonia. The patient's sister is also here today. He has been having some upset stomach and vomiting on Saturday. It was felt to be due to new medications, dexamethasone and Keppra due to his brain lesions which are probably metastatic from lung cancer. He did get a dose of Zofran yesterday prophylactically, but otherwise did not get it the day before. His biggest concern today is that there was too much cholesterol on his plate. I talked to the patient about how he is weak and frail and lost weight and we treat cholesterol over many years. He has had a history of coronary disease, but right now my biggest concern is his underlying potential for malignancy. The patient says his cough has not been that bad, but he continues to cough. Sister reports he is coughing. He is on oxygen still. He is short of breath. He has a catheter, he wants to keep it in. When I informed him he likely should go to the [facility], he said he did not need to, but then he understood if he was going to keep oxygen in the catheter, that this would make sense. The patient ate 100% of breakfast charted, but yesterday the most intake was dinner at 75%. He has been afebrile. He is denying pain. OBJECTIVE: Vital Signs: His weight is 58.4 kg, temp 98, pulse 74, blood pressure 114/60, respiratory rate 16, O2 of 93% on 2-1/2 L. General: He is in no acute distress. Heart: Regular rate and rhythm. Lungs: Lung sounds are clear to auscultation in the upper lobes. He does have some decreased breath sounds in the right lung, but no wheezing. Overall, his lung sounds are actually improved. Mental Status: He is alert. He is orientated x3. Abdomen: Soft. Positive bowel sounds. Nontender. Extremities: Warm and dry. No edema. LABORATORY DATA: Lab work today shows white count 8.7, hemoglobin 12.1, platelets 293. Sodium 134, potassium 4.2, chloride 100, bicarb 31, BUN 16, creatinine 0.7, glucose 97, calcium 8.2, bilirubin 0.2, AST up to 51, ALT up to 64, albumin at 2. ASSESSMENT: 1. Likely metastatic lung cancer with brain metastasis. He is on Keppra and dexamethasone. He has not had a documented seizure, but potentially that is why he fell. 2. Fall at home with rhabdomyolysis, resolved. 3. Acute renal failure, resolved. 4. Hypokalemia, treated orally. We will decrease to once daily. 5. Community-acquired pneumonia. Completed antibiotics. 6. Shortness of breath and hypoxia, probably related to underlying lung cancer. He is going to continue on oxygen. 7. History of coronary disease. He is on his Lipitor. He also has peripheral vascular disease. 8. Severe malnutrition. He is on vitamins. Diet is encouraged. 9. Hypernatremia, resolved. 10.History of alcohol abuse. 11.Osteoporosis with previous fracture. His DEXA scan has been canceled. PLAN: The patient will continue swing bed cares until he is discharged to the [facility]. The preliminary date is Saturday as he will complete therapies by then. He still had some questions about insurance and I encouraged him and his sister to talk to the director social. He wants to keep the Lees catheter in place and I think this is reasonable for comfort. He may only have 6 months to live and he would definitely qualify for hospice. If he agrees to go that route, I would stop his medications like Lipitor. Otherwise, the patient is actually wanting to get a biopsy which I have put in motion in [place]. They are reviewing it. They contacted me after I saw the patient about a PET scan, so I will touch base more with the patient about that tomorrow. I do not feel that with his functional status, he is going to be a candidate for treatment and I have told him that this is not something that could be cured, but we will continue to further evaluate these things per the patient's wishes. The patient's mini-mental was 24/30. We will likely complete those scores again with BIMS scores at the [facility]. For DVT prophylaxis, he is on SCDs. MKA: 04/24/2021 17:26:33 MODL: 04/24/2021 17:53:53 /[id number]
[2021-04-24] MEDS: Folic Acid 1 MG Tab PO SCH (19:49)
[2021-04-24] MEDS: Thiamine 100 MG Tab PO SCH (19:49)
[2021-04-24] MEDS: atorvaSTATin 10 MG Tab PO SCH (19:49)
[2021-04-25] MEDS: Dexamethasone 4 MG Tab PO SCH ×2 (08:22→18:20)
[2021-04-25] MEDS: Aspirin 81 MG Tab.EC PO SCH (08:22)
[2021-04-25] MEDS: levETIRAcetam 500 MG Tab PO SCH ×2 (08:22→19:29)
[2021-04-25] MEDS: Cholecalciferol (Vitamin D3) 10 MCG Tab PO SCH (08:22)
[2021-04-25] MEDS: Potassium Chloride 10 MEQ Tab.ER PO SCH (08:22)
[2021-04-25] MEDS: Thiamine 100 MG Tab PO SCH (19:29)
[2021-04-25] MEDS: Folic Acid 1 MG Tab PO SCH (19:29)
[2021-04-25] MEDS: atorvaSTATin 10 MG Tab PO SCH (19:29)
[2021-04-26 05:48] VITALS: BP 126/67; PULSE 62
[2021-04-26] MEDS: Aspirin 81 MG Tab.EC PO SCH (07:50)
[2021-04-26] MEDS: Dexamethasone 4 MG Tab PO SCH (07:50)
[2021-04-26] MEDS: levETIRAcetam 500 MG Tab PO SCH (07:51)
[2021-04-26] MEDS: Potassium Chloride 10 MEQ Tab.ER PO SCH (07:51)
[2021-04-26] MEDS: Cholecalciferol (Vitamin D3) 10 MCG Tab PO SCH (07:51)
--- NOTE | 2021-04-26 11:36 | DISCH ---
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 SECONDARY DISCHARGE DIAGNOSES: Include: 1. For acute care. Prior to that he had a fall at home with mild rhabdomyolysis, resolved; acute renal failure due to dehydration, resolved; sepsis due to community-acquired pneumonia, treated and resolved. 2. Cognitive impairment, 24/30 on his Mini-Mental. He does carry a history of dementia, but his 2 large brain tumors are likely contributing. 3. Severe malnutrition. He was tolerating a diet and eating 100% of most meals here. 4. History of coronary disease with [id number] myocardial infarction, on acute care, but no chest pain. He is on medical management with aspirin. 5. Hypernatremia due to severe dehydration, resolved. 6. History of alcohol abuse and smoking remotely. 7. Osteoporosis with previous hip fracture. 8. Adjustment disorder, recently started on Wellbutrin. This was not continued on his hospital stay. 9. Urinary retention. 10.Chronic obstructive pulmonary disease with exacerbation due to pneumonia. He has DuoNeb available. REASON FOR ADMISSION: On the date of admission, this 70-year-old male who had been doing poorly with losing weight and having memory and personality changes really over the last year had been into the clinic recently, was started on Wellbutrin, but then about 2 days prior to his ER visit fell at home. It is unclear if he had a seizure or not. He came in. His sodium levels were like 156, and he actually had hyponatremia before. His creatinine was up to 1.4. He was given IV fluids on acute care. He started having fevers. He was given antibiotics and overall he was medically stabilized. Due to a lung mass on his chest x-ray, he underwent a CT, and due to cognitive changes, he underwent the head CT, which confirmed the large lung and brain lesions. The patient did work with therapies. The patient was informed that he was too weak to go home. He understood. The patient understands that his time left is limited and his disease is not curable. Initially, he did want to go for biopsy and treat this, but now on further discussion, the patient does not want treatment if it is not going to help him get better. Process for biopsy was already being arranged, and the patient knows that we will inform him if it can be scheduled in [place] to see if he is still interested as if it is something like small-cell lung cancer, he would be best served by hospice, even if it is only lymphoma. The patient's performance status, he is too weak to undergo treatments, and he does understand that. The patient did prefer to keep the Lees catheter in place. He actually requested that we place it for comfort. DISCHARGE PLANS AND INSTRUCTIONS: The patient is going over to [facility]. He will have a CMP and CBC in 4 weeks' time. He will have his Lees catheter changed every 4 weeks. He will have PT/OT at [facility]. When he is unable to work with therapies, I suggest he transition over to hospice. I did visit with his sister, Vicky, about this also, and she is in agreement with this plan. He did sign his paperwork for no CPR and comfort care. When asked if he would want to be transferred back for pneumonia treatment, Narendra said "well they can take care of that over there." I do expect there is a chance his condition will deteriorate, he could even have a stroke. He is already on dexamethasone 4 mg twice daily. He is on the Keppra 500 twice daily to prevent seizures. All of his vitamins were discontinued. I will recheck him on longterm rounds. PHYSICAL EXAMINATION: Vital Signs: His discharging vitals include weight 54.2 kg, temperature 97.8, pulse 62, blood pressure 127/67, respiratory rate 18, and O2 of 96 on 3 L. General: He is in no acute distress. Heart: Regular rate and rhythm. S1, S2 without murmur. Lungs: Sounds are clear to auscultation on the right lung, decreased over the left base, but no wheezing. Abdomen: Nondistended, nontender. Extremities: Warm and dry. No edema. Mental Status: Alert, he is orientated x3. His mood is down. He is depressed. He is quite frail and cachectic. Greater than 30 minutes spent on the discharge process. MKA: 04/26/2021 10:00:33 MODL: 04/26/2021 11:28:07 /[id number]
== END 2021-04-26 10:40 | DRG 640 ==
LOC: VM.MS 16:05
PROVIDERS: ADMIT Internal Medicine; ATTEND Internal Medicine
DX: R62.51 Failure to thrive (child) (principal); E43 Unspecified severe protein-calorie malnutrition; J18.9 Pneumonia, unspecified organism; C34.90 Malignant neoplasm of unspecified part of unspecified bronchus or lung; C79.31 Secondary malignant neoplasm of brain; Z68.1 Body mass index [BMI] 19.9 or less, adult; J44.1 Chronic obstructive pulmonary disease with (acute) exacerbation; J44.0 Chronic obstructive pulmonary disease with (acute) lower respiratory infection; M62.82 Rhabdomyolysis; N17.9 Acute kidney failure, unspecified; E87.0 Hyperosmolality and hypernatremia; G31.84 Mild cognitive impairment of uncertain or unknown etiology; Z20.822 Contact with and (suspected) exposure to COVID-19; M81.0 Age-related osteoporosis without current pathological fracture; F43.20 Adjustment disorder, unspecified; I73.9 Peripheral vascular disease, unspecified; Z87.891 Personal history of nicotine dependence
CPT/HCPCS: 36415; 80053; 85025; 94760; 97110-GP; 97116-GP; 97530-GP; A9270-GY; J8540; U0002

== ENCOUNTER 2021-07-10 11:23 | Inpatient (IN) | payer MEDICARE, OTHER ==
[2021-07-10] MEDS ORDERED: Ondansetron 4 MG Tab.DIS PO PRN ×2 (18:08→19:19)
[2021-07-10] MEDS ORDERED: Acetaminophen 325 MG Tab PO PRN ×2 (18:08→19:19)
[2021-07-10] MEDS ORDERED: methylPREDNISolone Sodium Succinate 125 MG/2 ML SDV IVPUSH ONE (18:23)
--- NOTE | 2021-07-10 18:48 | PCM.HP.2 ---
H&P History of Present Illness - General Date of Service: 07/10/21 Admit Problem/Dx: Admission Diagnosis/Problem Admission Diagnosis/Problem 1. Hypoxia 2. Positive D dimer 3. Possible PE 4. Positive Troponin 5. Exacerbation COPD 6. Fever and tachycardia 7. 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 8. Dementia 9. CAD Source of Information: Patient, [facility] Records History Limitations: Reports: Altered Mental Status, Respiratory Distress - History of Present Illness Initial Comments - Free Text/Narative: Enrrique is a 70 yr old male who is a resident of [facility]. He woke this morning with acute SOB. Nursing applied oxygen per nasal cannula at 4L/ nc. His pulse oximeter improved to 92%. Other vital signs revealed HR of 145 and RR of 36. He denies any pain or other symptoms to me. He had a negative covid test this morning. He had just completed 3 weeks of Radiation Therapy 3 days ago. He was exhibiting more aggressive behavior with nebulizer treatments so they were reduced to prn. In the clinic he showed a Troponin of 293, Lactic Acid of 2.3, D dimer of 6.71. CBC showed WBC of 2.2, Hgb 12.5, plt 133, segs 83, Band 11, lymph 2. BMP essentially WNL. Chest xray appeared negative for acute changes, compared to April films. I attempted to discuss treatment options with Narendra but he responded unintelligible. I contacted his next of kin, his sister Vicky Mccormick. I discussed our difficulty in obtaining a CTA of his chest to rule out PE due to staffing of the Radiology department until morning. I related this could be a segmental PE and empiric treatment with Lovenox for the night is adequate but if this is a large saddle PE this could be a suboptimal treatment. Transfer of [place] would be denied due to his metastatic cancer and palliative nature of his condition. She understands our discussion and asks appropriate questions. She agrees that we will keep him in our local hospital and cover him with Lovenox until we have a CTA available in the morning. If he should have cardiac arrest no CPR is desired. If he should experience respiratory failure she also wishes Narendra to have no ventilator. Onset of Symptoms: Reports: Today, Sudden Symptom Onset Date: 07/10/21 Duration of Symptoms: Reports: Hour(s):, Constant Location: Reports: Chest Severity: Severe Improves with: Reports: Medication Worsens with: Reports: Movement Associated Symptoms: Reports: Confusion, Fever/Chills, Shortness of Breath, Weakness - Related Data Allergies/Adverse Reactions: Allergies Allergy/AdvReac Type Severity Reaction Status Date / Time donepezil [From Aricept] AdvReac Nausea and Verified 07/10/21 19:04 Vomiting Home Medications: Home Meds Aspirin [Halfprin] 81 mg PO DAILY 07/15/18 [History] Acetaminophen [Pain Relief] 650 mg PO Q4H PRN 04/21/21 [History] Albuterol/Ipratropium [DuoNeb 3.0-0.5 MG/3 ML] 3 ml NEB Q4HRRT PRN 04/21/21 [History] Ondansetron [Zofran ODT] 4 mg PO Q4H PRN 04/21/21 [History] dexAMETHasone [Dexamethasone] 4 mg PO BID 04/21/21 [History] levETIRAcetam [Keppra] 500 mg PO BID 04/21/21 [History] Potassium Chloride [Klor-Con 10] 20 meq PO DAILY tab.er 04/26/21 [Rx] Past Medical History HEENT History: Reports: Other (See Below) Cardiovascular History: Reports: High Cholesterol, Other (See Below) Other Cardiovascular History: atheroclerosis. vascular claudication. PVD. AAA Respiratory History: Reports: COPD Other Respiratory History: acute respiratory failure Musculoskeletal History: Reports: Other (See Below) Other Musculoskeletal History: elbow fracture Psychiatric History: Reports: Addiction Endocrine/Metabolic History: Reports: None - Past Surgical History HEENT Surgical History: Reports: Cataract Surgery Other Cardiovascular Surgeries/Procedures: cardiac catheterization GI Surgical History: Reports: Hernia Repair/Other Musculoskeletal Surgical History: Reports: Hip Replacement Other Musculoskeletal Surgeries/Procedures:: left hip replacement Social & Family History - Family History Family Medical History: No Pertinent Family History - Caffeine Use Caffeine Use: Reports: Other Caffeine Use Comment: too intoxicated to answer - Living Situation & Occupation Living situation: Reports: Alone Occupation: Retired H&P Review of Systems - Review of Systems: Review Of Systems: See Below General: Reports: Fever, Weakness HEENT: Reports: No Symptoms Pulmonary: Reports: Shortness of Breath Exam - Exam Exam: See Below - Exam Quality Assessment: Supplemental Oxygen General: Alert, Cooperative, Moderate Distress HEENT: Conjunctiva Clear, Hearing Intact, Glasses Neck: Supple, Trachea Midline, +2 Carotid Pulse wo Bruit Lungs: Rhonchi Cardiovascular: Regular Rhythm, Normal S1, Normal S2, Tachycardia GI/Abdominal Exam: Normal Bowel Sounds, Soft Extremities: Normal Inspection Skin: Warm, Dry Neuro Extensive - Mental Status: Alert, Normal Mood/Affect Psychiatric: Alert, Normal Affect, Normal Mood #1 Interpretation EKG Date: 07/10/21 Time: 15:39 Rhythm: Other (Sinus Tachycardia) Rate (Beats/Min): 120 [place]: Normal P-Wave: Enlarged QRS: Normal ST-T: Normal (Biatrial enlargement, ST and T wave abnormality, consider lateral ischemia) QT: Normal - Problem List (1) COPD with hypoxia SNOMED Code(s): 24032187 ICD Code: J44.9 - CHRONIC OBSTRUCTIVE PULMONARY DISEASE, UNSPECIFIED; R09.02 - HYPOXEMIA Status: Acute Priority: High Current Visit: Yes (2) Fever SNOMED Code(s): 168075019 ICD Code: R50.9 - FEVER, UNSPECIFIED Status: Acute Priority: Medium Current Visit: Yes Qualifiers: Fever type: due to other condition Qualified Code(s): R50.81 - Fever presenting with conditions classified elsewhere (3) Fever and neutropenia SNOMED Code(s): 352350454 ICD Code: D70.9 - NEUTROPENIA, UNSPECIFIED; R50.81 - FEVER PRESENTING WITH CONDITIONS CLASSIFIED ELSEWHERE Status: Acute Current Visit: Yes (4) D-dimer, elevated SNOMED Code(s): 635209415 ICD Code: R79.89 - OTHER SPECIFIED ABNORMAL FINDINGS OF BLOOD CHEMISTRY Status: Acute Priority: High Current Visit: Yes (5) Troponin I above reference range SNOMED Code(s): 002488466 ICD Code: R77.8 - OTHER SPECIFIED ABNORMALITIES OF PLASMA PROTEINS Status: Acute Priority: Medium Current Visit: Yes Problem List Initiated/Reviewed/Updated: Yes Orders Last 24hrs: Active Orders 24 hr Category Date Time Status Patient Status [ADT] Routine ADT 07/10/21 18:03 Ordered Cardiac Monitoring [RC] CONTINUOUS Care 07/10/21 18:09 Ordered Dietary Supplements [RC] BIDMEALS Care 07/10/21 18:18 Ordered Oxygen Therapy [RC] PRN Care 07/10/21 18:03 Ordered Pulse Oximetry [RC] CONTINUOUS Care 07/10/21 18:08 Ordered VTE/DVT Education [RC] PER UNIT ROUTINE Care 07/10/21 18:03 Ordered Vital Signs [RC] Q4H Care 07/10/21 18:03 Ordered Respiratory Care Assess and Treatment [CONS] Routine Cons 07/10/21 18:08 Ordered Regular Diet [DIET] Diet 07/10/21 Dinner Ordered BASIC METABOLIC PANEL,BMP [CHEM] AM Lab 07/11/21 05:11 Ordered CBC W/O DIFF,HEMOGRAM [HEME] AM Lab 07/11/21 05:11 Ordered CBC WITH AUTO DIFF [HEME] AM Lab 07/11/21 05:11 Ordered INR,PT,PROTHROMBIN TIME [COAG] AM Lab 07/11/21 05:11 Ordered LACTATE SEPSIS W/ REFLEX [CHEM] Routine Lab 07/10/21 18:08 Ordered TROPONIN I HIGH SENSITIVITY [CHEM] Routine Lab 07/11/21 06:00 Ordered Acetaminophen [TylenoL] Med 07/10/21 18:08 Ordered 650 mg PO Q4H PRN Amoxicillin/Clavulanate K [Augmentin 875 MG/125 MG] Med 07/10/21 20:00 Ordered 1 tab PO Q12HR Azithromycin [Zithromax] Med 07/11/21 08:00 Ordered 250 mg PO DAILY Enoxaparin [Lovenox] Med 07/10/21 20:00 Ordered 55 mg SUBCUT BID Ondansetron [Zofran ODT] Med 07/10/21 18:08 Ordered 4 mg PO Q4H PRN Sodium Chloride 0.9% [Saline Flush] Med 07/10/21 18:08 Ordered 10 ml FLUSH ASDIRECTED PRN methylPREDNISolone Sod Succ [Solu-MEDROL] Med 07/10/21 18:23 Once 125 mg IVPUSH ONETIME ONE Saline Lock Insert [OM.PC] Routine Oth 07/10/21 18:08 Ordered Resuscitation Status Routine Resus Stat 07/10/21 18:03 Ordered Medication Orders Acetaminophen (Acetaminophen 325 Mg Tab) 650 mg PO Q4H PRN PRN Reason: Pain (Mild 1-3)/fever Amoxicillin/Clavulanate Potassium (Amoxicillin/Clavulanate K 875-125 Mg Tab) 1 tab PO Q12HR AMENA Azithromycin (Azithromycin 250 Mg Tab) 250 mg PO DAILY AMENA Enoxaparin Sodium (Enoxaparin 60 Mg/0.6 Ml Syringe) 55 mg 1 mg/kg ( mg) SUBCUT BID AMENA Methylprednisolone Sodium Succinate (Methylprednisolone Sodium Succinate 125 Mg/2 Ml Sdv) 125 mg IVPUSH ONETIME ONE Stop: 07/10/21 18:24 Ondansetron HCl (Ondansetron 4 Mg Tab.Dis) 4 mg PO Q4H PRN PRN Reason: nausea, able to take PO Sodium Chloride (Sodium Chloride 0.9% 10 Ml Syringe) 10 ml FLUSH ASDIRECTED PRN PRN Reason: Keep Vein Open Assessment/Plan Comment:: 1. Continuous pulse oximetry with oxygen via nasal cannula per protocol. 2. Telemetry. 3. CTA in morning. Will cover with Lovenox 1 mg/ kg BID tonight. 4. Solumedrol 125 mg IVP tonight but continue his Decadron per routine. 5. Zithromax and Augmentin for acute bronchitis with exacerbation of COPD. 6. DNR/ DNI, no ventilator. Consult Resp Therapy. 7. Check lab in the morning- lactic acid, troponin, cbc. 8. Continue home meds. 9. His PCP, Dr. Dumas, to assume care in the morning.
[2021-07-10] MEDS: Amoxicillin/Clavulanate K 875-125 MG Tab PO SCH (19:18)
[2021-07-10] MEDS ORDERED: Albuterol/Ipratropium 3.0-0.5 MG/3 ML Neb Soln NEB PRN (19:19)
[2021-07-10] MEDS: Sodium Chloride 0.9% 10 ML Syringe FLUSH PRN (19:20)
[2021-07-10] MEDS ORDERED: Enoxaparin 60 MG/0.6 ML Syringe SUBCUT ONE (20:00)
[2021-07-10] MEDS ORDERED: Sodium Chloride 0.9% 1,000 ML IV ONE (20:05)
[2021-07-10] MEDS ORDERED: Sodium Chloride 0.9% 1,000 ML IV STA (20:08)
[2021-07-10] MEDS: levETIRAcetam 500 MG Tab PO SCH (20:23)
[2021-07-10] MEDS: Sodium Chloride 0.9% 1,000 ML IV SCH (21:33)
[2021-07-10] MEDS: Budesonide 0.5 MG/2 ML Neb Susp NEB SCH (21:58)
[2021-07-10] MEDS: QUEtiapine 25 MG Tab PO SCH (21:59)
[2021-07-10] MEDS: Mirtazapine 15 MG Tab PO SCH (21:59)
[2021-07-11] MEDS: Sodium Chloride 0.9% 1,000 ML IV SCH (04:24)
[2021-07-11] MEDS: Budesonide 0.5 MG/2 ML Neb Susp NEB SCH ×2 (06:11→19:40)
[2021-07-11 07:19] LABS: CHLORIDE,CL 112 mmol/L (98-107); SODIUM,NA 147 mmol/L (136-145)
[2021-07-11 07:20] LABS: ANION GAP 14.6 mmol/L (5-15)
[2021-07-11] MEDS: Azithromycin 250 MG Tab PO SCH (07:55)
[2021-07-11] MEDS: Dexamethasone 4 MG Tab PO SCH ×2 (07:55→19:41)
[2021-07-11] MEDS: levETIRAcetam 500 MG Tab PO SCH ×2 (07:55→19:41)
[2021-07-11] MEDS: Amoxicillin/Clavulanate K 875-125 MG Tab PO SCH (07:55)
[2021-07-11] MEDS: Aspirin 81 MG Tab.EC PO SCH (07:55)
[2021-07-11] MEDS: atorvaSTATin 10 MG Tab PO SCH (07:55)
[2021-07-11] MEDS: Potassium Chloride 10 MEQ Tab.ER PO SCH (07:55)
[2021-07-11] MEDS ORDERED: Enoxaparin 60 MG/0.6 ML Syringe SUBCUT SCH (08:45)
--- NOTE | 2021-07-11 10:31 | CR ---
[id number] RAD/RAD Chest PA or AP 1V EXAM: RAD Chest PA or AP 1V INDICATION: COUGH. COMPARISON: CT from April 18, 2021. DISCUSSION/IMPRESSION: Review of prior CT from March 2021 demonstrates right hilar mass extending into the right upper lobe. This correlates with appearance of the right paramediastinal region and right upper lobe on today's examination. New areas of interlobular septal thickening and subtle parenchymal opacification in both lungs left greater than right. Those findings were not seen previously. In the setting of cough, findings could represent interstitial pneumonitis/pneumonia, including sequela of COVID 19. Differential diagnosis of bilateral findings includes fluid retention. There is possibly a small left effusion with blunting of the left costophrenic sulcus. However, heart is normal in size. Correlate for other clinical signs of fluid retention. Sohan Delacruz MD 07/11/21 1707 Thank you for allowing us to participate in the care of your patient.
[2021-07-11] MEDS: cefTRIAXone 1 GM Vial IVPUSH SCH (11:19)
--- NOTE | 2021-07-11 11:57 | CT ---
[id number] CT/CTA Chest EXAM: CTA Chest CLINICAL DATA: SHORTNESS OF BREATH, POSITIVE D-DIMER. PATIENT UNABLE COMPARISON: 04/18/2021. FINDINGS: No large central, lobar or segmental pulmonary arterial filling defects. Apparent filling defects involving a few subsegmental pulmonary arterial branches are likely secondary to respiratory/motion artifact. There is a stable 7 cm right perihilar mass with extension into the mediastinum. Additionally there are multiple hilar and mediastinal lymph nodes many of which demonstrate internal necrosis. There is mass effect on the pulmonary artery and associated airway without high-grade stenosis or occlusion. No endobronchial invasion is identified. These findings are not significantly changed when compared to the prior study. Bibasilar pulmonary infiltrates, left greater than right. Moderate predominantly paraseptal emphysema. No pneumothorax. Atherosclerotic calcifications of the aorta and its branches. Coronary artery disease. IMPRESSION: 1. No evidence of acute pulmonary embolism. 2. Stable appearance of right perihilar mass with multiple pathologically enlarged lymph nodes demonstrating necrosis. 3. Bibasilar pulmonary infiltrates, left greater than right. Findings are likely infectious/inflammatory as can be seen with aspiration. Willy No DO 07/11/21 9416 Thank you for allowing us to participate in the care of your patient.
--- NOTE | 2021-07-11 11:58 | PN ---
Progress Note for LICO HERNANDEZ Date: 07/11/2021 Room #: VM.ZTEMP SUBJECTIVE: This is hospital day #2 on a 70-year-old admitted for observation with fever, increasing oxygen needs and agitation at the intermediate. The patient was not complying with his nebs, although his breathing had improved since this morning per records. He was sent over to the clinic and evaluated. His temp was a 101.6, his pulse 134, and his x-ray showed no pneumonia, but the lung cancer mass was present. His D-dimer was significantly elevated and he was admitted for CTA and started on Lovenox. Unfortunately, CTA is not available until today. The patient denies any chest pain. He is coughing. He denies that he is more short of breath. His oxygen requirements went down from 4 to 3 L. His lactic acid that was elevated at 3.3, improved to 1.6. He did get IV fluids. His troponin was also over 200 and it is down to 150 today. He otherwise just completed radiation treatments to the brain on Saturday for his lung cancer that metastasized there. He did eat last evening. He ate some breakfast this morning. OBJECTIVE: Vital Signs: His temperature currently is 100, T-max is 101.6 from the clinic. His weight is 57.1 kg, but yesterday admitting weight was 53.2 on the bed scale. He has an O2 of 94 on 3 L. He has a pulse of 103, blood pressure 102/66, respiratory rate 24. General: He is in no acute distress. He is resting in bed. He is alert. He answers questions appropriately. Heart: Regular rate and rhythm. S1, S2 without murmur. Lungs: Lung sounds are decreased throughout, but no crackles, no wheezes, which is not usual for him. Usually he has adventitious breath sounds. He did get some IV Solu-Medrol on admit. Abdomen: Positive bowel sounds. Soft, nondistended, nontender. Extremities: Warm and dry. No edema. Mental Status: He is alert, but did not answer orientation questions. He preferred to answer things yes or no. LABORATORY DATA: His lab work shows his white count down to 2.6, hemoglobin 9.6, platelets 111, 81% neutrophils, 12% bands. INR 1.1. Sodium 147, potassium 3.6, chloride 112, bicarb 24, BUN 25, creatinine 0.6, glucose 158, calcium 7.7. COVID negative. Troponin down to 150. ASSESSMENT AND PLAN: 1. Acute on chronic hypoxic respiratory failure, likely due to pneumonia with the fevers. We repeated an x-ray today and it was showing infiltrates. We will change his Augmentin to IV Rocephin and continue him on his azithromycin. 2. Chronic obstructive pulmonary disease exacerbation due to pneumonia. He is already on oral dexamethasone. We will continue with the neb treatments. 3. Possible pulmonary embolism with D-dimer significantly elevated. He will get a CT PE protocol today. 4. Lung cancer, adenocarcinoma with metastasis to the brain, recently completed radiation. 5. [id number] myocardial infarction due to pneumonia. He also has underlying coronary disease. He is on medical treatments and he is not having any ongoing symptoms of myocardial infarction. 6. Dementia, in the past felt to be alcohol induced, but worsened by his lung mets. 7. Severe malnutrition. We will get an albumin tomorrow and encourage a diet 8. Hypernatremia. We will push oral fluids. 9. Pancytopenia with worsening anemia likely due to hemodilution with no signs of bleeding. PLAN: The patient will continue Lovenox therapeutic dosing 50 b.i.d. If in fact he does have pulmonary embolism, we will continue with Lovenox due to his malignancy. If not, we will place him on just daily Lovenox dosing. We will start IV Rocephin. We will upgrade him to acute cares. We will repeat lab work in the morning. I will stop IV fluids. Consider half-normal saline if sodium worsens. Check a BNP also due to changes on the CXR suggesting fluid. He is a code level 3. MKA: 07/11/2021 11:23:36 MODL: 07/11/2021 11:49:46 /[id number] LUTHER
[2021-07-11] MEDS ORDERED: Iopamidol 755 Mg/ML 100 ML Bottle IVPUSH ONE (12:45)
[2021-07-11] MEDS: Mirtazapine 15 MG Tab PO SCH (19:41)
[2021-07-11] MEDS: QUEtiapine 25 MG Tab PO SCH (19:41)
[2021-07-11] MEDS: Sodium Chloride 0.9% 10 ML Syringe FLUSH PRN (19:42)
[2021-07-12] MEDS: Budesonide 0.5 MG/2 ML Neb Susp NEB SCH (06:32)
[2021-07-12 07:28] LABS: ANION GAP 11.9 mmol/L (5-15); CHLORIDE,CL 108 mmol/L (98-107); SODIUM,NA 144 mmol/L (136-145)
[2021-07-12] MEDS ORDERED: Enoxaparin 30 MG/0.3 ML Syringe SUBCUT SCH (08:00)
[2021-07-12] MEDS: Dexamethasone 4 MG Tab PO SCH (08:45)
[2021-07-12] MEDS: atorvaSTATin 10 MG Tab PO SCH (08:45)
[2021-07-12] MEDS: Azithromycin 250 MG Tab PO SCH (08:45)
[2021-07-12] MEDS: Potassium Chloride 10 MEQ Tab.ER PO SCH (08:45)
[2021-07-12] MEDS: levETIRAcetam 500 MG Tab PO SCH (08:45)
[2021-07-12] MEDS: Aspirin 81 MG Tab.EC PO SCH (08:45)
[2021-07-12] MEDS: cefTRIAXone 1 GM Vial IVPUSH SCH (08:46)
[2021-07-12] MEDS ORDERED: Furosemide 20 MG Tab PO ONE (08:50)
[2021-07-12 10:18] VITALS: BP 123/84; PULSE 112
--- NOTE | 2021-07-13 00:04 | DISCH ---
Date of observation admission is 07/10/2021. Date of acute admission 07/11/2021. PRIMARY DISCHARGE DIAGNOSES: 1. Pneumonia, likely aspiration. 2. Acute on chronic hypoxic respiratory failure due to pneumonia, pulmonary embolism ruled out. 3. Stage IV lung cancer metastatic to the brain, recently completed radiation. 4. Chronic obstructive pulmonary disease with exacerbation due to pneumonia. 5. Non ST-elevation myocardial infarction secondary to pneumonia. 6. Severe malnutrition. 7. Dementia, multifactorial. 8. Pancytopenia, possibly due to hemodilution with anemia, but no signs of bleeding and hemoglobin had actually improved up to 11.0 on discharge. REASON FOR ADMISSION: On the date of admission, this 70-year-old male with known lung cancer since late March diagnosis had recently completed radiation of the brain. He was having increased respiratory distress and temperature up to 101.6 and pulse 134, so was brought over to the clinic but initial x-ray did not show pneumonia. Therefore, he was admitted on Lovenox awaiting a CT pulmonary embolism. He was given IV fluids. By the next morning, his oxygen requirements which were up to 4 L on admission were actually down to about 3 L and a proBNP was done which was showing his proBNP to be 2198, and therefore fluids were stopped and the CTA did show possible evidence of increased pulmonary vascular congestion. No PE. The lung mass was noted and increasing infiltrate, suspecting aspiration pneumonia. The patient had been on oral Augmentin and oral Zithromax. He was given a dose of IV Rocephin. He remained afebrile throughout the rest of his hospital course with last T-max of 100.9 on 4 a.m. on the and he was feeling well and asking even yesterday when he could be discharged back to the [facility]. Discussed again the goals of care with the patient and he is agreeable to hospice. The patient did receive some p.r.n. nebulizers and his scheduled nebulizers but he prefers to receive all nebulizers p.r.n. He had no behaviors during his stay here. He was polite and cooperative. He was eating actually up to like 50-90% of meals. He was voiding okay. He was denying any pain. He was still having some cough, but denying any increased shortness of breath. DISCHARGE PHYSICAL EXAMINATION: Vital Signs: Discharging vitals include a temperature 98.8, pulse 98, blood pressure 133/68, respiratory rate 24, and O2 of 92 on 3.5 L. General: He is in no acute distress. Heart: Regular rate and rhythm. LUNGS: Lung sounds are decreased with expiratory wheezing and more rhonchi noted on that left base. Abdomen: Nondistended, nontender. Extremities: Warm, dry. No edema. Overall appearance is mildly cachectic. Mental Status: He is alert. He wants to go home, specifically [facility]. He did not answer my name when I ask. DISCHARGE LABS: Include white count 4.4, hemoglobin 11, platelets 126, improved. Sodium 144, potassium 3.9, chloride 108, bicarb 28, BUN 20, creatinine 0.6, glucose 110, calcium 8.3, albumin 1.7. DISCHARGE PLANS AND INSTRUCTIONS: He will follow up on next penitentiary rounds. He will be on Augmentin twice daily for 5 more days. He will be on yogurt or a probiotic for 2 weeks to prevent diarrhea. He will continue oxygen. He will have nebulizers as needed per patient's request. Referral made to [facility] and daughter sister Vicky will be notified of that as this has been the plan we had all talked about even previously before radiation. The patient is a code level 3, no CPR, no intubation. Greater than 30 minutes spent on this discharge process. MKA: 07/12/2021 09:17:09 MODL: 07/12/2021 23:59:02 /[id number]
== END 2021-07-12 13:17 | DRG 177 ==
LOC: VM.MS 11:23 → OBSVTOIN 07-11 11:23
PROVIDERS: ADMIT Physician Assistant; ATTEND Internal Medicine
DX: J69.0 Pneumonitis due to inhalation of food and vomit (principal); R50.9 Fever, unspecified; R50.81 Fever presenting with conditions classified elsewhere; J96.21 Acute and chronic respiratory failure with hypoxia; E43 Unspecified severe protein-calorie malnutrition; D70.9 Neutropenia, unspecified; R79.89 Other specified abnormal findings of blood chemistry; R77.8 Other specified abnormalities of plasma proteins; E78.00 Pure hypercholesterolemia, unspecified; I73.9 Peripheral vascular disease, unspecified; I71.4 Abdominal aortic aneurysm, without rupture; I70.90 Unspecified atherosclerosis; Z88.8 Allergy status to other drugs, medicaments and biological substances; Z79.82 Long term (current) use of aspirin; Z79.899 Other long term (current) drug therapy; R09.02 Hypoxemia; I21.4 Non-ST elevation (NSTEMI) myocardial infarction; J44.0 Chronic obstructive pulmonary disease with (acute) lower respiratory infection; Z20.822 Contact with and (suspected) exposure to COVID-19; J44.1 Chronic obstructive pulmonary disease with (acute) exacerbation; Z68.1 Body mass index [BMI] 19.9 or less, adult; D61.818 Other pancytopenia; C34.90 Malignant neoplasm of unspecified part of unspecified bronchus or lung; C79.31 Secondary malignant neoplasm of brain; E87.0 Hyperosmolality and hypernatremia; F03.90 Unspecified dementia, unspecified severity, without behavioral disturbance, psychotic disturbance, mood disturbance, and anxiety; Z96.642 Presence of left artificial hip joint; I25.10 Atherosclerotic heart disease of native coronary artery without angina pectoris; E78.5 Hyperlipidemia, unspecified; Z66 Do not resuscitate; Z98.42 Cataract extraction status, left eye; Z98.41 Cataract extraction status, right eye
CPT/HCPCS: 36415; 71045; 71275; 80048; 80053; 83605; 83880; 84484; 85025; 85610; 94640; 94760; 96372; 96374; 96375; A9270-GY; G0378; J0696; J1650; J2930; J7030; J7620-GY; J8540; Q9967; U0002